=== PATIENT | male | born 1960 | race Caucasian/White ===

== ENCOUNTER 2021-03-31 22:15 | Inpatient (IN) | payer SELFPAY ==
[~2021-03-31] VITALS: Ht 188 cm; Wt 86.4 kg
[2021-03-31 22:37] LABS: HEMATOCRIT 47.1 % (42.0-52.0); HEMOGLOBIN 16.1 g/dl (13.5-18.0); MEAN CELL VOLUME 98 fl (80.0-100.0); MEAN CORPUSCULAR HEMOGLOBIN 34 pg (27.0-31.0); MEAN CORPUSCULAR HGB CONC 34 g/dl (33.0-37.0); MEAN PLATELET VOLUME 11.2 fl (7.4-10.4); PLATELET COUNT 179 K/mm3 (130-400); REDCELL DISTRIBUTION WIDTH-CV 12.4 % (11.5-14.5)
[2021-03-31 22:59] LABS: INR 0.9 (0.8-3.0); PROTHROMBIN TIME 10.3 SECONDS (9.7-12.8)
[2021-03-31 23:08] LABS: BASOPHIL 1 % (0-2); LYMPHOCYTE 2 % (20.0-51.0); METAMYELOCYTE 1 % (0-0); NEUTROPHILS 94 % (42.0-75.2); PLATELET ESTIMATE NORMAL (NORMAL)
[2021-03-31 23:29] LABS: ALANINE AMINOTRANSFERASE 73 U/L (4-49); ALBUMIN 4.2 gm/dL (3.5-5.0); ALKALINE PHOSPHATASE 123 U/L (50-136); ANION GAP 19 mmol/L (7-16); AST,SGOT 171 U/L (15-37); BILIRUBIN,TOTAL 1.7 mg/dL (0.0-1.0); BLOOD UREA NITROGEN 29 mg/dL (9-20); CALCIUM 8.4 mg/dL (8.4-10.2); CHLORIDE 101 mmol/L (98-107); CREATINE KINASE 1549 U/L (55-170); CREATININE, serum 1.43 (0.66-1.25); GLUCOSE 144 mg/dL (74-106); MAGNESIUM 1.8 mg/dL (1.6-2.3); SODIUM 134 mmol/L (137-145); TOTAL PROTEIN 7.3 gm/dL (6.4-8.2)
[2021-03-31 23:31] LABS: ALCOHOL(ethanol),MEDICAL < 10 mg/dL; CARBON DIOXIDE 14 mmol/L (22-30)
[2021-04-01] VITALS (8 sets, daily range): BP systolic 129–167; BP diastolic 88–110; PULSE 102–135; TEMP 97.4–98.5
[2021-04-01 01:08] LABS: ACETONE,SERUM NEGATIVE; LIPASE 126 U/L (23-300)
[2021-04-01] MEDS ORDERED: PRINIVIL20 MG PO (02:44)
[2021-04-01 05:57] LABS: BASO % 0.2 % (0.0-2.0); GRAN # 12.1 (1.4-6.5); GRAN % 86.6 % (42.2-75.2); HEMATOCRIT 39.1 % (42.0-52.0); LYMPH # 0.7 (1.2-3.4); LYMPH % 5.1 % (20.0-51.0); MEAN CELL VOLUME 94 fl (80.0-100.0); MEAN CORPUSCULAR HEMOGLOBIN 33 pg (27.0-31.0); MEAN CORPUSCULAR HGB CONC 35 g/dl (33.0-37.0); MEAN PLATELET VOLUME 9.9 fl (7.4-10.4); MONO # 1.1 (0.1-0.6); MONO % 7.7 % (1.7-9.3); PLATELET COUNT 124 K/mm3 (130-400); RED BLOOD COUNT 4.17 M/mm3 (4.20-5.60); REDCELL DISTRIBUTION WIDTH-CV 12.2 % (11.5-14.5)
[2021-04-01 06:13] LABS: HEMOGLOBIN 13.8 g/dl (13.5-18.0)
[2021-04-01 06:18] LABS: CALCIUM 7.7 mg/dL (8.4-10.2); CREATININE, serum 1.07 (0.66-1.25); POTASSIUM 4.3 mmol/L (3.4-5.0)
[2021-04-01 08:08] LABS: COLLECTION METHOD CLEAN CATCH
[2021-04-01 08:34] LABS: TRICYCLIC ANTIDEPRESS URINE NEGATIVE
[2021-04-01 08:36] LABS: MUCOUS Present /lpf; PH 5 (5-8); SQUAMOUS EPITHELIAL 0-2 /hpf; URINE APPEARANCE Clear; URINE BACTERIA None Seen /hpf; URINE BILIRUBIN Negative (NEGATIVE); URINE BLOOD 3+ (NEGATIVE); URINE COLOR Yellow; URINE GLUCOSE Negative (NEGATIVE); URINE KETONE Negative (NEGATIVE); URINE LEUKOCYTE ESTERASE Negative (NEGATIVE); URINE NITRATE Negative (NEGATIVE); URINE PROTEIN(semi-quant) 2+ (NEGATIVE); URINE UROBILINOGEN Negative (NEGATIVE)
[2021-04-01] MEDS ORDERED: PROVENTIL0.09 MG/A1 IH (09:36)
--- NOTE | 2021-04-01 09:54 | NUR ---
Patient to room 325 from the ED, patient pivot transfered to the bed with 2 assist. Patient has visual tremors and shakes. A&Ox4. VSS, HR tachcardic, telemetry on chest. Denies pain and discomfort. IV CDI. Hebert dependent drainage, marlon, clear. Seizure precautions in place. ETOH protocol. Denies pain and discomfort. No further needs expressed. Call light within reach. Bed alarm on and door left open. Nurse oriented patient to location, call light and ETOH protocols
[2021-04-01 16:18] LABS: COLLECTION METHOD CLEAN CATCH
[2021-04-01 16:36] LABS: PH 7 (5-8); SQUAMOUS EPITHELIAL None Seen /hpf; URINE APPEARANCE Clear; URINE BACTERIA None Seen /hpf; URINE BILIRUBIN Negative (NEGATIVE); URINE BLOOD 2+ (NEGATIVE); URINE COLOR Straw; URINE GLUCOSE Negative (NEGATIVE); URINE KETONE Negative (NEGATIVE); URINE LEUKOCYTE ESTERASE Negative (NEGATIVE); URINE NITRATE Negative (NEGATIVE); URINE PROTEIN(semi-quant) Negative (NEGATIVE); URINE UROBILINOGEN Negative (NEGATIVE); URINE WBC 0-2 /hpf
--- NOTE | 2021-04-01 17:09 | NUR ---
Patient had an uneventful day, has been sitting up in bed watching TV. Patient worked with PT and was unable to bear weight on legs. A&Ox4. VSS, BP elevated and HR tachycardic. IV CDI, fluids infusing. Visable tremors in hands and arms. No anxiety, is plesant. ETOH protocol in place. Seizure precautions in place. Denies pain and discomfort. Hbeert dependent drainage. Call light within reach. Bed alarm on and door left open.
[2021-04-01 17:11] LABS: TRICYCLIC ANTIDEPRESS URINE NEGATIVE
--- NOTE | 2021-04-01 21:06 | NUR ---
PT SLEEPING IN BED UPON ENTERING ROOM. EVEING MEDICATIONS GIVEN. PT HAS NS RUNNING AT 125ML/HR. LUNG SOUNDS AUSCULTATED WITH PLEURAL FRISCTION RUB IN THE UPPER LOBES BILATERALLY DURING INHALATION. BILATERAL BASES ARE CLEAR. PT DENIES ANY PAIN OR NEEDS AT THIS TIME. TREMORS NOTED TO HAND AND ARMS WHEN RAISED. PT RUNNING SINUS TACHYCARDIA. CALL LIGHT WITHIN REACH. WILL CONTINUE TO MONITOR.
[2021-04-02] VITALS (13 sets, daily range): BP systolic 111–151; BP diastolic 63–106; PULSE 83–137; TEMP 98–99.5
--- NOTE | 2021-04-02 06:16 | NUR ---
PT HAD LITTLE REST THROUGHOUT THE NIGHT CLAIMING HE WOKE UP ABOUT EVERY HOUR. PT DENIES ANY NEEDS AT THIS TIME. WILL CONTINUE TO MONITOR.
--- NOTE | 2021-04-02 06:45 | NUR ---
bedside shift report received from JUAN A Pope and JUAN A Benavidez
--- NOTE | 2021-04-02 07:36 | NUR ---
resting in bed, full assessment completed, see interventions for further info, is sitting up and ready for breakfast, c/o some stomach upset that he states has just started and wants to try and eat
[2021-04-02 07:55] LABS: BASO % 0.4 % (0.0-2.0); EOS % 0.4 % (0-4.0); GRAN # 8.1 (1.4-6.5); GRAN % 77.4 % (42.2-75.2); HEMATOCRIT 42.2 % (42.0-52.0); HEMOGLOBIN 14.6 g/dl (13.5-18.0); LYMPH # 1.7 (1.2-3.4); LYMPH % 15.8 % (20.0-51.0); MEAN CELL VOLUME 98 fl (80.0-100.0); MEAN CORPUSCULAR HEMOGLOBIN 34 pg (27.0-31.0); MEAN CORPUSCULAR HGB CONC 35 g/dl (33.0-37.0); MEAN PLATELET VOLUME 10.5 fl (7.4-10.4); MONO # 0.6 (0.1-0.6); MONO % 5.5 % (1.7-9.3); PLATELET COUNT 97 K/mm3 (130-400); RED BLOOD COUNT 4.32 M/mm3 (4.20-5.60); REDCELL DISTRIBUTION WIDTH-CV 11.9 % (11.5-14.5)
[2021-04-02 08:02] LABS: ALBUMIN 3.6 gm/dL (3.5-5.0); BILIRUBIN,TOTAL 1.6 mg/dL (0.0-1.0); CALCIUM 8.2 mg/dL (8.4-10.2); CREATININE, serum 0.88 (0.66-1.25); MAGNESIUM 1.5 mg/dL (1.6-2.3); POTASSIUM 3.5 mmol/L (3.4-5.0); TOTAL PROTEIN 6.8 gm/dL (6.4-8.2)
--- NOTE | 2021-04-02 09:16 | NUR ---
speech therapy in to work with patient, psychology tech calls and states his heart rate is sustained at about 140, Dr Kevin notified
--- NOTE | 2021-04-02 10:30 | NUR ---
remains with elevated pulse and visible tremors, medicated with ativan 1mg IV, resting in bed
--- NOTE | 2021-04-02 10:43 | NUR ---
Initial visit; Patient thanked Cupola Repairer for listening and visiting about congregation, family and getting sober and well. Cupola Repairer offered a blessing and wished the patient well.
--- NOTE | 2021-04-02 12:28 | NUR ---
cardiopulmonary in to complete EKG
--- NOTE | 2021-04-02 13:00 | NUR ---
tremors are less noticeable now and heart rate is slowing, medicated with ativan 0.5mg slow IV
--- NOTE | 2021-04-02 15:30 | NUR ---
fiber glass worker met with patient and spoke with son, Tai, on the phone. Patient is originally from [place] and has moved in with his son in [place]. Son told social insurance analyst that he went on a 2 week vacation and patient wasn't able to care for himself. Son states they understand that they will not be able to leave patient alone for that length of time moving forward. Patient does not have health insurance and will not qualify for disability, nor does he want to pursue that. Worker provided information on alcohol rehab treatment options and a need to be screened by [facility]. Patient stated he has been in an inpatient treatment before and did not feel it was beneficial. Worker advised that patient will need to physically rehab before he can enter any inpatient alcohol treatment center. Worker and patient discussed private pay costs of alcohol treatment. Patient will not be eligible for a physical rehab facility or homehealth as he does not have health insurance. Patient plans to return to son's home upon discharge. Plan to return to son's home.
--- NOTE | 2021-04-02 15:42 | NUR ---
bedside shift report given to JUAN A Parsons
--- NOTE | 2021-04-02 15:48 | NUR ---
Bedside report received from JUAN A Juárez. This RN asked the patient how he was doing, he stated, "Not too well". This RN incquired further and the patient stated, "Well, I tried to get up to the bathroom and it just didn't go well". Patient denied any pain and did not need any assistance at this time.
--- NOTE | 2021-04-02 21:25 | NUR ---
PT RESTING COMFORTABLY IN BED. PT ALERT BUT DISORIENTED. THIS NURSE REMINDED PT WHERE HE WAS AND WHY HE WAS HERE, PT STATED HIS UNDERSTANDING. PT DENIES ANY NEEDS AT THIS TIME. HEART RATE IS TACHYCARDIC AND TREMORS ARE NOTED TO HIS EXTREMITIES. CALL LIGHT WITHIN REACH. WILL CONTINUE TO MONIOTR.
[2021-04-03] VITALS (7 sets, daily range): BP systolic 124–153; BP diastolic 81–111; PULSE 88–114; TEMP 98.1–98.7
--- NOTE | 2021-04-03 02:54 | NUR ---
PT VITALS OBTAINED AT O152, BP WAS 153/111. HYDRALAZINE ADMINISTERED PER ORDERS. AT 0226 I REALIZED I GAVE 20MG INSTEAD OF THE ORDERED 10MG. OBTAINED A SET OF VITALS AND BP READ 128/81. THIS NURSE CALLED CECILIA HAWK AND SHE ADVISED TO CONTINUE TO MONITOR.
[2021-04-03 07:10] LABS: CREATININE, serum 0.71 (0.66-1.25); MAGNESIUM 1.9 mg/dL (1.6-2.3); POTASSIUM 3.1 mmol/L (3.4-5.0)
--- NOTE | 2021-04-03 08:00 | NUR ---
Patient sitting up in bed watching TV. A&O, but confused to location. VSS. HR tachycardic. Denies pain and discomfort. Tremors in hands. Unsteady on feet. IV CDI, fluids infusing. ETOH protocol in place. No further needs expressed from the patient. Call light within reach. Bed alarm on. Door left open
[2021-04-03] MEDS ORDERED: LOVENOX 4040 MG/0.4 SQ (16:22)
[2021-04-03] MEDS ORDERED: NICODERM C14 MG/PATC TD (16:22)
[2021-04-03] MEDS ORDERED: MAG-OX 400400 MG/TAB PO (16:23)
[2021-04-03] MEDS ORDERED: PROTONIX 40MG T40 MG PO (16:23)
[2021-04-03] MEDS ORDERED: MULTIPLE VITAMI1 TA5 PO (16:23)
[2021-04-03] MEDS ORDERED: THIAMINE 1100 MG/TAB PO (16:23)
[2021-04-03] MEDS ORDERED: FOLIC ACID 11 MG/TA1 PO (16:23)
[2021-04-03] MEDS ORDERED: COLACE 100100 MG/CAP PO (16:23)
[2021-04-03] MEDS ORDERED: PROVENTIL0.09 MG/A1 IH (16:24)
[2021-04-03] MEDS ORDERED: K-TAB20 PO (16:27)
--- NOTE | 2021-04-03 17:30 | NUR ---
Patient taken by wheelchair to the ER entrance where son is waiting to take the patient to [facility]. Discharge paperwork and personal belongings with the patient. IV's left in patient and stapleton aware. No further needs expressed. Report called to [facility]
== END 2021-04-03 17:30 | disposition swing bed (61) | DRG 897 ==
LOC: COL.ER 22:15 → SURG 23:34 → COL.ER 04-01 08:46 → SURG 04-01 08:46
PROVIDERS: Emergency Medicine; Family Medicine; Nurse Practitioner Family; ADMIT Internal Medicine
DX: F10.131 Alcohol abuse with withdrawal delirium (principal); E87.2 Acidosis; N17.9 Acute kidney failure, unspecified; M62.82 Rhabdomyolysis; R65.10 Systemic inflammatory response syndrome (SIRS) of non-infectious origin without acute organ dysfunction; I10 Essential (primary) hypertension; K76.0 Fatty (change of) liver, not elsewhere classified; F17.210 Nicotine dependence, cigarettes, uncomplicated; R33.9 Retention of urine, unspecified; R73.9 Hyperglycemia, unspecified; R53.81 Other malaise; R29.6 Repeated falls; K57.30 Diverticulosis of large intestine without perforation or abscess without bleeding
CPT/HCPCS: 99223-AI; 99232-AI; 99233-AI; 99239; C9113; J0360; J0692; J1644; J1650; J1956; J2060; J3411; J3475; J7030; Q9967

== ENCOUNTER 2023-09-02 23:29 | Inpatient (IN) | payer SELFPAY ==
[~2023-09-02] VITALS: Ht 188 cm; Wt 79.6 kg
[~2023-09-02 23:29] MED LIST: ASPIRIN E.C. 8181 MG PO; COLACE 100100 MG/CAP PO; FIRST-MOUTHWASH1 KIT PO; FOLIC ACID 11 MG/TA1 PO; K-TAB20 PO; LIDOCAINE HC20 MG/M2 PO; LOVENOX 4040 MG/0.4 SQ; MAG-OX 400400 MG/TAB PO; MULTIPLE VITAMI1 TA5 PO; NICODERM C14 MG/PATC TD; PRINIVIL20 MG PO; PROTONIX 40MG T40 MG PO; PROVENTIL0.09 MG/A1 IH; RT ADVAIR 228 DISKUS IH; THIAMINE 1100 MG/TAB PO
[2023-09-02] MEDS ORDERED: Ondansetron 4 MG/2 ML VIAL IV ONE (23:45)
[2023-09-02] MEDS ORDERED: LORazepam 2 MG/ML 1 ML VIAL IV ONE (23:45)
[2023-09-02] MEDS ORDERED: Folic Acid 1 MG,Thiamine 200 MG in NS 1,000 ML IV ONE (23:45)
[2023-09-02] MEDS ORDERED: NS 1,000 ML IV ONE (23:45)
[2023-09-02 23:53] LABS: MEAN CELL VOLUME 94 fl (80.0-100.0); MEAN CORPUSCULAR HEMOGLOBIN 32 pg (27-31); MEAN CORPUSCULAR HGB CONC 34 g/dl (33.0-37.0); MEAN PLATELET VOLUME 9.4 fl (7.4-10.4); PLATELET COUNT 170 K/mm3 (130-400); RED BLOOD COUNT 5.68 M/mm3 (4.20-5.60); REDCELL DISTRIBUTION WIDTH-CV 16.7 % (11.5-14.5)
[2023-09-03] VITALS (428 sets, daily range): BP systolic 111–168; BP diastolic 83–120; PULSE 67–120; TEMP 97.1–98.1; O2SAT 79–100
[2023-09-03 00:01] LABS: HEMATOCRIT 53.2 % (42.0-52.0)
[2023-09-03 00:14] LABS: ANISOCYTOSIS 1+; HYPOCHROMIA 1+; LYMPHOCYTE 4 % (20.0-51.0); NEUTROPHILS 93 % (42.0-75.2); PLATELET ESTIMATE NORMAL (NORMAL)
[2023-09-03 00:15] LABS: ALANINE AMINOTRANSFERASE 66 U/L (0-55); ALBUMIN 3.3 gm/dL (3.4-4.8); ALKALINE PHOSPHATASE 194 U/L (40-150); ANION GAP 26 mmol/L (7-16); AST,SGOT 118 U/L (5-34); BILIRUBIN,TOTAL 2.3 mg/dL (0.2-1.2); BLOOD UREA NITROGEN 17 mg/dL (8-26); CALCIUM 8.9 mg/dL (8.4-10.2); CHLORIDE 103 mmol/L (98-107); CREATININE, serum 1.31 mg/dL (0.72-1.25); GLUCOSE 83 mg/dL (70-99); LIPASE 48 U/L (8-78); MAGNESIUM 1.7 mg/dL (1.6-2.6); POTASSIUM 3.8 mmol/L (3.5-4.5); SODIUM 142 mmol/L (136-145); TOTAL PROTEIN 7.1 gm/dL (6.2-8.1)
[2023-09-03 00:16] LABS: STOMATOCYTE 1+
[2023-09-03 00:25] LABS: ALCOHOL(ethanol),MEDICAL < 10 mg/dL (0-10)
[2023-09-03 00:26] LABS: CARBON DIOXIDE 13 mmol/L (23-31)
[2023-09-03] MEDS ORDERED: LORazepam 2 MG/ML 1 ML VIAL IV ONE (00:45)
[2023-09-03 00:47] LABS: INR 1.2 (0.8-3.0); PROTHROMBIN TIME 12.7 SECONDS (9.7-12.8)
[2023-09-03] MEDS ORDERED: Ondansetron 4 MG/2 ML VIAL IV PRN (01:45)
[2023-09-03] MEDS ORDERED: Mag/Al Hydrox/Simeth Susp 30 ML CUP PO PRN (01:45)
[2023-09-03] MEDS ORDERED: Acetaminophen 325 MG TAB PO PRN (01:45)
[2023-09-03] MEDS ORDERED: Pantoprazole 40 MG in NS 10 ML IV SCH (01:49)
[2023-09-03] MEDS ORDERED: cefTRIAXone 1 G in Water For Injection,Sterile 10 ML IV SCH (02:00)
[2023-09-03] MEDS ORDERED: LORazepam 2 MG/ML 1 ML VIAL IV PRN (02:00)
[2023-09-03] MEDS ORDERED: Albuterol/Ipratropium 3 MG-0.5 MG/3 ML Neb Soln IH PRN (02:00)
[2023-09-03] MEDS ORDERED: D5 1/2 NS 1,000 ML IV SCH (02:00)
--- NOTE | 2023-09-03 02:20 | NUR ---
PATIENT ARRIVED TO ICU VIA BED. PATIENT ON ROOM AIR WITH BANANA BAG FINISHING FROM ER. PATIENT HAS MODERATE TREMORS WITH SYSTOLIC 160'S-170'S WHICH WAS UNCHANGED PER ER REPORT. PATIENT IS TACHYCARDIC WHICH IS UNCHANGED FROM ER REPORT. PATIENT SCORED AT THIS TIME FOR WITHDRAWAL TREATMENT DUE TO LAST ATIVAN AT 0100. PATIENT ARRIVED TO UNIT WITH WALLET, KEYS, SHOES, PANTS, UNDERWARE, SHIRT, PHONE, AND GLASSES. PATIENT DID NOT WANT BELONGINGS LOCKED IN SECURITY.
--- NOTE | 2023-09-03 03:00 | NUR ---
HOSPITALIST, PB, NOTIFIED IN REGARDS TO PATIENT'S WITHDRAWAL SCORES AND REQUIRING AN ADDITIONAL 4MG OF ATIVAN. DISCUSSED PATIENT STATUS AND VITAL SIGNS. PER PROVIDER CONTINUE TO TREAT WITHDRAW
--- NOTE | 2023-09-03 04:00 | NUR ---
HOSPITALIST, PB, NOTIFIED REGARDING PATIENT REQUIRING ATIVAN EVERY 30 MINUTES. PATIENT IS THRASHINGM HYPERTENSIVE, TACHYCARDIC, CONFUSED, PULLING AT LINES. PER PROVIDER OK TO START PRECEDEX AND CONTINUE TO TREAT WITHDRAW SYMPTOMS WITH ATIVAN.
[2023-09-03 05:45] LABS: COLLECTION METHOD CLEAN CATCH
[2023-09-03 06:03] LABS: URINE APPEARANCE Clear (CLEAR/HAZY); URINE COLOR Yellow (YELLOW); URINE PROTEIN(semi-quant) 2+ (NEGATIVE)
[2023-09-03 06:04] LABS: MUCOUS Present (NOT PRESENT); URINE BACTERIA Moderate /hpf (NONE SEEN); URINE BLOOD 2+ (NEGATIVE); URINE GLUCOSE Negative (NEGATIVE); URINE KETONE 1+ (NEGATIVE); URINE NITRATE Positive (NEGATIVE); URINE UROBILINOGEN 0.2 E.U/dL (0.2-1.0)
[2023-09-03 06:29] LABS: HEMATOCRIT 46.2 % (42.0-52.0); MEAN CELL VOLUME 92 fl (80.0-100.0); MEAN CORPUSCULAR HEMOGLOBIN 31 pg (27-31); MEAN CORPUSCULAR HGB CONC 34 g/dl (33.0-37.0); MEAN PLATELET VOLUME 9.7 fl (7.4-10.4); PLATELET COUNT 124 K/mm3 (130-400); RED BLOOD COUNT 5.01 M/mm3 (4.20-5.60); REDCELL DISTRIBUTION WIDTH-CV 16.5 % (11.5-14.5)
[2023-09-03 06:30] LABS: HEMOGLOBIN 15.7 g/dl (13.5-18.0)
[2023-09-03 06:48] LABS: ALBUMIN 2.9 gm/dL (3.4-4.8); BILIRUBIN,TOTAL 1.5 mg/dL (0.2-1.2); CALCIUM 7.8 mg/dL (8.4-10.2); CREATININE, serum 1.12 mg/dL (0.72-1.25); MAGNESIUM 1.4 mg/dL (1.6-2.6); POTASSIUM 3.6 mmol/L (3.5-4.5)
[2023-09-03] MEDS ORDERED: Multivitamin TAB PO SCH (08:00)
[2023-09-03] MEDS ORDERED: Nicotine 14 MG DAILY PATCH TD SCH (09:00)
[2023-09-03] MEDS ORDERED: Folic Acid 1 MG TAB PO SCH (09:00)
[2023-09-03] MEDS ORDERED: Lisinopril 20 MG TAB PO SCH (09:00)
[2023-09-03] MEDS ORDERED: Doxycycline Hyclate 100 MG in NS 150 ML IV SCH (19:00)
[2023-09-03] MEDS ORDERED: traZODone 50 MG TAB PO SCH (21:00)
[2023-09-03] MEDS ORDERED: LORazepam 1 MG TAB PO PRN (22:00)
[2023-09-04] VITALS (11 sets, daily range): BP systolic 117–151; BP diastolic 77–105; PULSE 93–118; TEMP 97.9–99.1; O2SAT 97–100
--- NOTE | 2023-09-04 05:04 | NUR ---
PT HAS BEEN COOPERATIVE AND FULLY ORIENTED THIS SHIFT. TOLERATING PO WELL, INCLUDING BEDSIDE SWALLOW ASSESSMENT OF CRACKER AND APPLESAUCE. DIET ADVANCED TO REGULAR. LIBRIUM DOSE DELAYED DUE TO OUT OF STOCK IN [facility] THROUGHOUT HOSPITAL, WILL GIVE SOON AVAILABLE PER BRAKER PASSENGER TRAIN.
[2023-09-04] MEDS ORDERED: chlordiazePOXIDE 25 MG CAP PO ONE (05:15)
--- NOTE | 2023-09-04 07:53 | NUR ---
Patient was reported as answering questions appropriately, was able to order his breakfast this morning, sat up and ate his food without complications. CIWA scores reported to be 8 or below overnight. Will continue to monitor for significant changes throughout the day.
[2023-09-04 09:07] LABS: CALCIUM 7.7 mg/dL (8.4-10.2); CREATININE, serum 0.94 mg/dL (0.72-1.25); POTASSIUM 3.2 mmol/L (3.5-4.5)
--- NOTE | 2023-09-04 09:30 | NUR ---
Initial visit; Patient thanked Process Lead for looking in on him and visiting. Patient said his mother was dying though lives in [place]. Process Lead offered her sympathy and offered to keep Hannah in her prayers. Patient thanked Process Lead.
--- NOTE | 2023-09-04 10:43 | NUR ---
tail worker met with patient to discuss discharge planning. Patient reports he lives alone in [place] in a townhouse. Patient reports he is currently independent with ADLS and does not have any DME. Patient reports his daughter, Gena, is the best point of contact, P# [phone]. Patient reports his PCP is at [facility] but could not remember the name. LAWRENCE will contact [facility]. Patient's preferred pharmacy is [facility] in [place]. Patient reports he had issues affording an $87 medication the other day and ended up not getting it. SW provided information on Good RX, Single Care and a Family Prescription Card. Patient reports he does not have a DPOA-HC in writing but would want his daughter to be his DPOA-HC. Patient does not want to complete a DPOA-HC form during his hospital stay. SW discussed patient's alcohol withdrawal and if he was wanting to seek any treatment for this. Patient reported he was open to it. LAWRENCE provided local resources for AA, [facility] information, [facility] Resource Guide and the [facility] as he does not currently have insurance. Patient would like to return home at time of discharge. LAWRENCE contacted [facility] with financial counseling. [facility] reports they completed a FAA last time patient was here but they were still needing supporting documents. [facility] expressed a member of their financial counseling team will meet with patient. LAWRENCE contacted [facility] and confirmed patient's current PCP is Dr. Osullivan and he is listed as Self-pay in their system. Discharge plan: Home
--- NOTE | 2023-09-04 11:09 | NUR ---
ironworker wire fence erector attempted to contact patient's daughter at P# [phone] and was informed by the person that answered that this was the incorrect number. SW met with patient to receive another number for his daughter. Patient provided P# [phone] but patient was unable to reach his daughter via telephone. SW will attempt to reach daughter later.
[2023-09-04] MEDS ORDERED: MAG-OX 400400 MG/TAB PO (11:26)
[2023-09-04] MEDS ORDERED: PROTONIX 40MG T40 MG PO (11:26)
[2023-09-04] MEDS ORDERED: K-TAB20 PO (11:28)
--- NOTE | 2023-09-04 13:25 | NUR ---
social worker masters received a call from Gena Lee, daughter, P# [phone]. SW confirmed with Gena that patient has a son that is local but he is estranged with him. Son's name is Temo Lee. Gena expressed she did not believe the patient had a DPOA-HC in writing but she expressed he has spoke about it before. SW expressed patient reported he wanted her to be his DPOA-HC but was not wanting to complete any documentation at this time, so without it being completed she and her brother would both be involved in making medical decisions if he were not able to make it on his own. Gena also expressed patient has an ex- whom he is also estranged from.
--- NOTE | 2023-09-04 19:14 | NUR ---
report received from marguerite ramos. pt resting in bed and eating dinner. pt denies pain. bed alarm on. call light in reach. all needs met at this time.
--- NOTE | 2023-09-04 22:06 | NUR ---
shift assessment complete, see documentation. pt not scoring on ciwa currently. pt vss. pt a&o x2. pt denies pain. pt resting in bed. bed alarm on. call light in reach. all needs met at this time.
[2023-09-05] VITALS (8 sets, daily range): BP systolic 114–154; BP diastolic 75–99; PULSE 87–92; TEMP 97.4–99.6
--- NOTE | 2023-09-05 03:39 | NUR ---
pt doing well tonight. pt slept for the first few hours of the shift and is now requesting snacks. pt has been pleasant and cooperative with cares. pt barely scoring on ciwa scale with slight tremors felt. pt remains asymptomatic otherwise. pt continues to deny pain. bed alarm on. call light in reach. all needs met at this time.
[2023-09-05] MEDS ORDERED: Thiamine 100 MG TAB PO SCH (09:00)
[2023-09-05 09:27] LABS: BASO % 0.4 % (0.0-2.0); EOS # 0.1 K/mm3 (0.0-0.7); EOS % 1.1 % (0.0-4.0); GRAN # 4.7 K/mm3 (1.4-6.5); GRAN % 67.2 % (42.2-75.2); HEMATOCRIT 43.9 % (42.0-52.0); LYMPH # 1.6 K/mm3 (1.2-3.4); LYMPH % 22.3 % (20.0-51.0); MEAN CELL VOLUME 92 fl (80.0-100.0); MEAN CORPUSCULAR HEMOGLOBIN 32 pg (27-31); MEAN CORPUSCULAR HGB CONC 34 g/dl (33.0-37.0); MEAN PLATELET VOLUME 10.8 fl (7.4-10.4); MONO # 0.6 K/mm3 (0.1-0.6); MONO % 8.6 % (1.7-9.3); PLATELET COUNT 83 K/mm3 (130-400); RED BLOOD COUNT 4.75 M/mm3 (4.20-5.60); REDCELL DISTRIBUTION WIDTH-CV 15.2 % (11.5-14.5)
--- NOTE | 2023-09-05 09:28 | NUR ---
composite layup worker attended clinical rounding. Pt can discharge today and Dr. Kevin informed SW that pt declined Home Health at this time. Discharge Plan: Home
[2023-09-05] MEDS ORDERED: Potassium Bicarbonate/Citrate 20 MEQ Effervescent TAB PO SCH (09:30)
[2023-09-05] MEDS ORDERED: Magnesium Sulfate 1 GM/100 ML IV Soln IV SCH (09:30)
[2023-09-05 09:32] LABS: ALBUMIN 2.7 gm/dL (3.4-4.8); CALCIUM 7.1 mg/dL (8.4-10.2); CREATININE, serum 0.75 mg/dL (0.72-1.25); TOTAL PROTEIN 5.9 gm/dL (6.2-8.1)
--- NOTE | 2023-09-05 09:53 | NUR ---
Follow-up; Patient thanked Hematologist Oncologist for looking in on him again and stated that he was feeling better. Godfrey thanked Hematologist Oncologist for keeping him in her prayers.
[2023-09-05] MEDS ORDERED: OMNICEF 300MG300 MG PO (10:15)
[2023-09-05] MEDS ORDERED: FOLIC ACID 11 MG/TA1 PO (10:18)
[2023-09-05] MEDS ORDERED: DUO-KAPS1 CAP PO (10:19)
[2023-09-05] MEDS ORDERED: THIAMINE 1100 MG/TAB PO (10:19)
[2023-09-05] MEDS ORDERED: K-PHOS ORIGINA500 MG PO (10:31)
--- NOTE | 2023-09-05 13:44 | NUR ---
LAWRENCE was informed by JUAN A Covarrubias, Tax Technician expressed concerns for pt's mobility. PT Juan Francisco saw pt and said he would not be safe to discharge. Dr. Kevin was informed and spoke with Tax Technician. LAWRENCE was advised to schedule pt an Uber for 2:00pm. LAWRENCE scheduled Uber for 2:00pm and calls will go to RN with updates. Discharge Plan: Home, all services declined
== END 2023-09-05 14:00 | disposition home or self-care (01) | DRG 897 ==
LOC: COL.ER 23:29 → ICU 09-03 01:36 → MEDICAL 09-04 17:05
PROVIDERS: Nurse Practitioner; Physician Assistant; ADMIT Internal Medicine
DX: F10.239 Alcohol dependence with withdrawal, unspecified (principal); E87.20 Acidosis, unspecified; E87.6 Hypokalemia; E83.42 Hypomagnesemia; E83.39 Other disorders of phosphorus metabolism; E86.0 Dehydration; F17.200 Nicotine dependence, unspecified, uncomplicated; I10 Essential (primary) hypertension
CPT/HCPCS: A4314; C9113; J0696; J1650; J2060; J2405; J3411; J3475; J7030

== ENCOUNTER 2023-09-15 20:09 | Inpatient (IN) | payer SELFPAY ==
[~2023-09-15] VITALS: Ht 188 cm; Wt 75.0 kg
[~2023-09-15 20:09] MED LIST changes: +DUO-KAPS1 CAP PO; +K-PHOS ORIGINA500 MG PO; +OMNICEF 300MG300 MG PO
[2023-09-15 20:36] LABS: BASO # 0.1 K/mm3 (0.0-0.2); BASO % 0.7 % (0.0-2.0); EOS # 0.1 K/mm3 (0.0-0.7); EOS % 0.4 % (0.0-4.0); GRAN # 10.1 K/mm3 (1.4-6.5); GRAN % 83.2 % (42.2-75.2); HEMATOCRIT 48.6 % (42.0-52.0); HEMOGLOBIN 16.4 g/dl (13.5-18.0); INR 1.2 (0.8-3.0); LYMPH # 1.1 K/mm3 (1.2-3.4); LYMPH % 9.4 % (20.0-51.0); MEAN CELL VOLUME 95 fl (80.0-100.0); MEAN CORPUSCULAR HEMOGLOBIN 32 pg (27-31); MEAN CORPUSCULAR HGB CONC 34 g/dl (33.0-37.0); MEAN PLATELET VOLUME 9.5 fl (7.4-10.4); MONO # 0.7 K/mm3 (0.1-0.6); MONO % 5.9 % (1.7-9.3); PLATELET COUNT 458 K/mm3 (130-400); PROTHROMBIN TIME 13.2 SECONDS (9.7-12.8); RED BLOOD COUNT 5.14 M/mm3 (4.20-5.60); REDCELL DISTRIBUTION WIDTH-CV 15.8 % (11.5-14.5)
[2023-09-15 21:33] LABS: ALANINE AMINOTRANSFERASE 131 U/L (0-55); ALBUMIN 2.7 gm/dL (3.4-4.8); ALKALINE PHOSPHATASE 218 U/L (40-150); ANION GAP 18 mmol/L (7-16); AST,SGOT 83 U/L (5-34); BILIRUBIN,TOTAL 2.1 mg/dL (0.2-1.2); BLOOD UREA NITROGEN 9 mg/dL (8-26); CALCIUM 7.6 mg/dL (8.4-10.2); CARBON DIOXIDE 22 mmol/L (23-31); CHLORIDE 98 mmol/L (98-107); CREATININE, serum 0.92 mg/dL (0.72-1.25); GLUCOSE 90 mg/dL (70-99); LIPASE 21 U/L (8-78); POTASSIUM 3.1 mmol/L (3.5-4.5); SODIUM 138 mmol/L (136-145); TOTAL PROTEIN 6.4 gm/dL (6.2-8.1)
[2023-09-15 21:40] LABS: MAGNESIUM < 0.9 mg/dL (1.6-2.6)
[2023-09-15 21:42] LABS: TROPONIN-I < 0.010 ng/mL (0.00-0.033)
[2023-09-16] VITALS (18 sets, daily range): BP systolic 105–181; BP diastolic 66–122; PULSE 74–118; TEMP 91.9–99.1
--- NOTE | 2023-09-16 07:10 | NUR ---
0035-pt admitted to room 329 per WC from ED, alert and oriented x4, IV in RH patent/secure. on RA, oriented to room, floor and poc. need to obtain UA when pt able to void, has been having numerous loose stools. BP and CIWA scores elevated. notified Dr Jeffrey per phone for prn orders. tele monitor in place, no skin issues observed. med req, admission intake and assessment completed. pt able to rest after valium and ativan given. CIWA scores 2-15 since arrival. awake this am, ordering breakfast, imodium given x2 for continued diarrhea.
[2023-09-16 08:04] LABS: CALCIUM 8.1 mg/dL (8.4-10.2); CREATININE, serum 0.92 mg/dL (0.72-1.25); MAGNESIUM 1.9 mg/dL (1.6-2.6)
[2023-09-16 08:07] LABS: POTASSIUM 2.7 mmol/L (3.5-4.5)
[2023-09-16 08:17] LABS: COLLECTION METHOD CLEAN CATCH
[2023-09-16 08:41] LABS: PH 6.5 (5.0-8.5); SQUAMOUS EPITHELIAL 0-2 /hpf (0-10); URINE APPEARANCE Clear (CLEAR/HAZY); URINE BLOOD 2+ (NEGATIVE); URINE COLOR Amber (YELLOW); URINE GLUCOSE Negative (NEGATIVE); URINE KETONE 1+ (NEGATIVE); URINE NITRATE Negative (NEGATIVE); URINE PROTEIN(semi-quant) 2+ (NEGATIVE)
--- NOTE | 2023-09-16 08:45 | NUR ---
Hospitalist notified of critical lab value, see orders
[2023-09-16 08:59] LABS: TRICYCLIC ANTIDEPRESS URINE NEGATIVE (NEGATIVE)
[2023-09-16 09:34] LABS: BASO # 0.1 K/mm3 (0.0-0.2); BASO % 0.9 % (0.0-2.0); EOS # 0.1 K/mm3 (0.0-0.7); EOS % 0.7 % (0.0-4.0); GRAN # 8.6 K/mm3 (1.4-6.5); GRAN % 79.5 % (42.2-75.2); HEMATOCRIT 44.5 % (42.0-52.0); HEMOGLOBIN 15.3 g/dl (13.5-18.0); LYMPH # 1.4 K/mm3 (1.2-3.4); LYMPH % 12.7 % (20.0-51.0); MEAN CELL VOLUME 93 fl (80.0-100.0); MEAN CORPUSCULAR HEMOGLOBIN 32 pg (27-31); MEAN CORPUSCULAR HGB CONC 34 g/dl (33.0-37.0); MEAN PLATELET VOLUME 9.4 fl (7.4-10.4); MONO # 0.6 K/mm3 (0.1-0.6); MONO % 5.8 % (1.7-9.3); PLATELET COUNT 405 K/mm3 (130-400); RED BLOOD COUNT 4.79 M/mm3 (4.20-5.60); REDCELL DISTRIBUTION WIDTH-CV 15.7 % (11.5-14.5)
--- NOTE | 2023-09-16 10:03 | NUR ---
SW met with patient to discuss discharge planning. Patient lives in [place] by himself. Patient's PCP is currently at [facility]; however, patient does not have insurance and is worried about the PCP visits cost. SW provided information on [facility] along with [facility] Care Team. Pharmacy is [facility] in [place], patient has issues affording medications without issue. SW provided Singlecare, Family Prescription Card and Good RX cards. Patient does not have a DPOA-HC and wanted to wait until discharge to establish. Patient said best point of contact is Gena Conde# [phone]. Patient reports he has a CPAP but needs the levels adjusted, SW mentioned to discuss this with his PCP. Patient reports to be independent with ADLS and has a car for transportation. Patient reports he did not drive to the hospital but he will be able to pay for an Uber upon discharge. LAWRENCE provided resources for drug and alcohol meetings and [facility]. Patient reports he has been to Monday meetings, SW expressed there are meetings throughout the week that he can go several times if he would like. Patient understood and has no further questions or concerns. Patient would like to return home at time of discharge. Discharge Plan: Home
--- NOTE | 2023-09-16 10:17 | NUR ---
Patient awake, alert and oriented. Tremors noted with movement, denies nausea, headache, shortness of breath or pain. Unsteady on feet. Bed in lowest position, fall precautions in place. Denies needs at this time.
--- NOTE | 2023-09-16 17:57 | NUR ---
Patient calm throughout the afternoon, tremors visible. Denies nausea or headache. Resting in bed, tolerating meal trays. Fall precautions in place, x1 assist to bathroom. Bed in lowest position, bed alarm on, call light within reach.
--- NOTE | 2023-09-16 22:37 | NUR ---
PT'S POTASSIUM LEVEL 3.4, PROTOCOL CALLS FOR EFFER K X4 DOSES, PT DOES NOT WANT TO BE AWAKE ALL NOC DRINKING MEDS, STATES HE IS TRYING TO SLEEP. SPOKE WITH CECILIA Matthews APRN @ BEDSIDE, 40MEQ POTASSIUM TAB ORDERED FOR NOW AND ANOTHER IN 2 HOURS
[2023-09-17] VITALS (9 sets, daily range): BP systolic 124–158; BP diastolic 79–102; PULSE 92–106; TEMP 97.7–99
--- NOTE | 2023-09-17 06:40 | NUR ---
awake resting in bed ordeirng breakfast, bedside shift report received from JUAN A Tyson
--- NOTE | 2023-09-17 06:51 | NUR ---
ciwa scores 2-10 this shift, ativan 1mg po given x2, up to restroom with sba using walker. no N/V or diarrhea this shift. K+ replaced during the noc for 3.4 level, redrawn this am, awaiting results, report given to JUAN A Juárez day shift.
--- NOTE | 2023-09-17 07:50 | NUR ---
awake and sitting up in bed waiting for breakfast, full assessment completed, see interventions for further info, breakfast is here now, denies needs
--- NOTE | 2023-09-17 09:00 | NUR ---
resting in bed on right side talking on phone
--- NOTE | 2023-09-17 10:15 | NUR ---
appears to be sleeping when entered room, awakened for VS
--- NOTE | 2023-09-17 11:00 | NUR ---
awake and watching TV, denies needs
--- NOTE | 2023-09-17 12:00 | NUR ---
sitting up in bed and had lunch, denies pain or needs
[2023-09-17] MEDS ORDERED: MULTI VITAMINS1 TAB PO (12:13)
[2023-09-17] MEDS ORDERED: MAG-OX 400400 MG/TAB PO (12:13)
[2023-09-17] MEDS ORDERED: THIAMINE 1100 MG/TAB PO (12:13)
[2023-09-17] MEDS ORDERED: FOLIC ACID 11 MG/TA1 PO (12:13)
[2023-09-17] MEDS ORDERED: K-DUR20 MEQ PO (12:15)
--- NOTE | 2023-09-17 12:18 | NUR ---
Dr Kevin was in to see patient, will plan discharge later today, spoke with neonatal social worker and she will try to find a walker for him for at home
[2023-09-17] MEDS ORDERED: PROTONIX 40MG T40 MG PO (13:02)
--- NOTE | 2023-09-17 13:22 | NUR ---
SW received notification from patients nurse, that patient will need walker prior to discharge. SW explored option for patient, as he is uninsured at this time. SW provided patient information on [place] loaner program, at this time closed and unable to fill with voucher program with [facility] as they are closed. SW contacted [facility] medical supplies to see if loaner is avaiable for patient, none at this time. Patient was informed that walker could be accessed with [facility] but would be billed to patient. Patient was provided information on financial assistance application. SW faxed over documentation to [facility] to have walker brought to patient.
--- NOTE | 2023-09-17 14:00 | NUR ---
discharge instructions given to patient and verbalizes understanding, informed him if he really wants to quit drinking to call Alcoholics Anonymous and a number was provided for him, he verbalized understanding, will call a taxi for discharge
--- NOTE | 2023-09-17 14:55 | NUR ---
discharged per WC
== END 2023-09-17 14:55 | disposition home or self-care (01) | DRG 897 ==
LOC: COL.ER 20:09 → SURG 23:30
PROVIDERS: Internal Medicine; ADMIT Internal Medicine
DX: F10.139 Alcohol abuse with withdrawal, unspecified (principal); G72.1 Alcoholic myopathy; Z20.822 Contact with and (suspected) exposure to COVID-19; G40.909 Epilepsy, unspecified, not intractable, without status epilepticus; F17.210 Nicotine dependence, cigarettes, uncomplicated; I10 Essential (primary) hypertension; E87.6 Hypokalemia; E83.42 Hypomagnesemia; E88.89 Other specified metabolic disorders; R53.81 Other malaise; R19.7 Diarrhea, unspecified; K20.80 Other esophagitis without bleeding; Z23 Encounter for immunization
CPT/HCPCS: J0360; J1650; J2060; J3475; J7030; Q9967

== ENCOUNTER 2023-09-19 21:52 | Inpatient (IN) | payer SELFPAY ==
[~2023-09-19] VITALS: Ht 188 cm; Wt 84.4 kg
[~2023-09-19 21:52] MED LIST changes: +K-DUR20 MEQ PO; +MULTI VITAMINS1 TAB PO
[2023-09-19 22:34] LABS: BASO # 0.1 K/mm3 (0.0-0.2); BASO % 1.2 % (0.0-2.0); EOS # 0.1 K/mm3 (0.0-0.7); EOS % 1.6 % (0.0-4.0); GRAN # 4.4 K/mm3 (1.4-6.5); GRAN % 62.9 % (42.2-75.2); HEMATOCRIT 48.7 % (42.0-52.0); HEMOGLOBIN 16.6 g/dl (13.5-18.0); LYMPH # 1.6 K/mm3 (1.2-3.4); LYMPH % 23.1 % (20.0-51.0); MEAN CELL VOLUME 96 fl (80.0-100.0); MEAN CORPUSCULAR HEMOGLOBIN 33 pg (27-31); MEAN CORPUSCULAR HGB CONC 34 g/dl (33.0-37.0); MEAN PLATELET VOLUME 8.7 fl (7.4-10.4); MONO # 0.8 K/mm3 (0.1-0.6); MONO % 10.8 % (1.7-9.3); PLATELET COUNT 364 K/mm3 (130-400); RED BLOOD COUNT 5.08 M/mm3 (4.20-5.60); REDCELL DISTRIBUTION WIDTH-CV 16.8 % (11.5-14.5)
[2023-09-19 22:44] LABS: INR 1.1 (0.8-3.0); PROTHROMBIN TIME 11.5 SECONDS (9.7-12.8)
[2023-09-19 22:54] LABS: ALANINE AMINOTRANSFERASE 231 U/L (0-55); ALCOHOL(ethanol),MEDICAL 236 mg/dL (0-10); ALKALINE PHOSPHATASE 237 U/L (40-150); ANION GAP 14 mmol/L (7-16); AST,SGOT 273 U/L (5-34); BILIRUBIN,TOTAL 0.9 mg/dL (0.2-1.2); BLOOD UREA NITROGEN < 5 mg/dL (8-26); CALCIUM 8.3 mg/dL (8.4-10.2); CARBON DIOXIDE 23 mmol/L (23-31); CHLORIDE 108 mmol/L (98-107); GLUCOSE 108 mg/dL (70-99); LIPASE 17 U/L (8-78); POTASSIUM 3.5 mmol/L (3.5-4.5); SODIUM 145 mmol/L (136-145); TOTAL PROTEIN 6.9 gm/dL (6.2-8.1)
[2023-09-20] VITALS (93 sets, daily range): BP systolic 128–165; BP diastolic 88–130; PULSE 116–150; TEMP 98.2–100.1; O2SAT 72–99
[2023-09-20 05:10] LABS: TRICYCLIC ANTIDEPRESS URINE NEGATIVE (NEGATIVE)
--- NOTE | 2023-09-20 07:00 | NUR ---
REPORT RECEIVED FROM JUAN A PONCE. PT RESTING IN BED. HEART RATE AND BP ELEVATED, PRN MEDS ALREADY GIVEN BY ACCESS CLINICIAN. SEIZURE PADS AND BED ALARM IN PLACE. CALL LIGHT IN REACH.
[2023-09-20 08:26] LABS: BASO # 0.1 K/mm3 (0.0-0.2); BASO % 1.4 % (0.0-2.0); EOS # 0.1 K/mm3 (0.0-0.7); EOS % 1.1 % (0.0-4.0); GRAN # 4.4 K/mm3 (1.4-6.5); GRAN % 58.9 % (42.2-75.2); HEMOGLOBIN 15.2 g/dl (13.5-18.0); LYMPH # 1.6 K/mm3 (1.2-3.4); LYMPH % 21.8 % (20.0-51.0); MEAN CELL VOLUME 99 fl (80.0-100.0); MEAN CORPUSCULAR HEMOGLOBIN 32 pg (27-31); MEAN CORPUSCULAR HGB CONC 32 g/dl (33.0-37.0); MEAN PLATELET VOLUME 9.1 fl (7.4-10.4); MONO # 1.2 K/mm3 (0.1-0.6); MONO % 16.1 % (1.7-9.3); PLATELET COUNT 289 K/mm3 (130-400); RED BLOOD COUNT 4.73 M/mm3 (4.20-5.60)
[2023-09-20 08:40] LABS: ANION GAP 14 mmol/L (7-16); BLOOD UREA NITROGEN < 5 mg/dL (8-26); CALCIUM 7.8 mg/dL (8.4-10.2); CARBON DIOXIDE 17 mmol/L (23-31); CHLORIDE 109 mmol/L (98-107); GLUCOSE 114 mg/dL (70-99); MAGNESIUM 1.1 mg/dL (1.6-2.6); SODIUM 140 mmol/L (136-145)
--- NOTE | 2023-09-20 10:31 | NUR ---
fiber optic assembly worker met with pt to discuss discharge planning. Pt lives alone in [place]. He sees Dr. Osullivan and obtains medications from [facility] with no difficulties. He is independent with ADLS and uses no DME. He does not have a DPOA-HC and declined one. He was informed his daughter, Gena [phone] is NOK for decision-making. Pt verbalized understanding. He confirmed with SW he does not have insurance. Pt would like to return home at discharge. LAWRENCE called and spoke with Link Fabric Machine Operator [employer] who has attempted to complete a FAA twice with pt. She needs paystubs or some sort of finances. LAWRENCE provided [facility]'s card to pt and informed him of what he needs to obtain so they can assist with covering this hospital stay. [facility] will see if any Medicaid application was completed or if he qualifies and inform LAWRENCE. Dr. Kevin informed LAWRENCE he will order a Psych consult to assess for capacity. Discharge Plan: TBD
--- NOTE | 2023-09-20 22:19 | NUR ---
PATIENT EXPERIENCING SIGNIFICANT WITHDRAWAL SYMPTOMS - PATIENT HAS VOMITED MULTIPLE TIMES. BEING DOSED ACCORDING TO CIWA. PATIENT IS PLEASANT. BED IN LOW POSITION AND CALL LIGHT WITHIN REACH. PATIENT DOES NOT NEED ANYTHING AT THIS TIME.
[2023-09-21] VITALS (252 sets, daily range): BP systolic 104–153; BP diastolic 78–99; PULSE 98–121; TEMP 98.2–98.9; O2SAT 33–100
[2023-09-21 04:36] LABS: BASO # 0.1 K/mm3 (0.0-0.2); BASO % 1.4 % (0.0-2.0); EOS # 0.1 K/mm3 (0.0-0.7); GRAN # 4.9 K/mm3 (1.4-6.5); GRAN % 60.9 % (42.2-75.2); HEMATOCRIT 43.3 % (42.0-52.0); HEMOGLOBIN 14.7 g/dl (13.5-18.0); LYMPH # 1.4 K/mm3 (1.2-3.4); LYMPH % 17.7 % (20.0-51.0); MEAN CELL VOLUME 95 fl (80.0-100.0); MEAN CORPUSCULAR HEMOGLOBIN 32 pg (27-31); MEAN CORPUSCULAR HGB CONC 34 g/dl (33.0-37.0); MEAN PLATELET VOLUME 9.3 fl (7.4-10.4); MONO # 1.5 K/mm3 (0.1-0.6); MONO % 18.6 % (1.7-9.3); PLATELET COUNT 243 K/mm3 (130-400); RED BLOOD COUNT 4.55 M/mm3 (4.20-5.60); REDCELL DISTRIBUTION WIDTH-CV 16.2 % (11.5-14.5)
[2023-09-21 04:59] LABS: ALBUMIN 2.6 gm/dL (3.4-4.8); BILIRUBIN,TOTAL 1.8 mg/dL (0.2-1.2); CALCIUM 8.4 mg/dL (8.4-10.2); CREATININE, serum 0.85 mg/dL (0.72-1.25); MAGNESIUM 1.3 mg/dL (1.6-2.6); PHOSPHOROUS 3.1 mg/dL (2.3-4.7); POTASSIUM 3.6 mmol/L (3.5-4.5); TOTAL PROTEIN 5.9 gm/dL (6.2-8.1)
--- NOTE | 2023-09-21 18:41 | NUR ---
PT LAYING IN BED UPON ENTERING, FOOD AT BEDSIDE. PT DENIES NEEDS AT THIS TIME. BED IN LOWEST POSITION, CALL LIGHT IN REACH, BED ALARM ON
--- NOTE | 2023-09-21 19:18 | NUR ---
REPORT RECEIVED FROM JUAN A RODRIGUEZ. PT ON THE FLOOR APPROX 1600. PT DENIES PAIN OR SHORTNESS OF BREATH AT THIS TIME. INT TO RIGHT AC PATENT. NICOTINE PATCH TO LEFT SHOULDER. PT HAS SCATTERED SCABS TO BILATERAL LOWER EXTREMITIES, PT UNSURE HOW THIS HAPPENED. PT BELONGINGS IN CLOSET. PT ORIENTED TO ROOM. PT DENIES NEEDS AT THIS TIME. BED IN LOWEST POSITION, CALL LIGHT IN REACH
--- NOTE | 2023-09-21 19:22 | NUR ---
REPORT GIVEN TO JUAN A GUILLEN
--- NOTE | 2023-09-21 20:00 | NUR ---
Assissted patient to bathroom and back to bed. Denies any pain or other needs at this time. Assessment compelte. IV in right forearm infusing with no complications. Call light and personal items in reach. Bed in low position and bed alarm on.
[2023-09-22] VITALS (8 sets, daily range): BP systolic 124–160; BP diastolic 60–124; PULSE 69–109; TEMP 97.5–99.1
--- NOTE | 2023-09-22 06:15 | NUR ---
Patient resting in bed. Denies any pain or needs. No changes over night. Highest CIWA score overnight was 5. Call light and personal items in reach. Bed in low position and bed alarm on.
[2023-09-22 07:32] LABS: BASO # 0.1 K/mm3 (0.0-0.2); BASO % 1.2 % (0.0-2.0); EOS # 0.1 K/mm3 (0.0-0.7); EOS % 2.2 % (0.0-4.0); GRAN # 3.2 K/mm3 (1.4-6.5); GRAN % 55.8 % (42.2-75.2); HEMATOCRIT 39.7 % (42.0-52.0); HEMOGLOBIN 13.8 g/dl (13.5-18.0); LYMPH # 1.3 K/mm3 (1.2-3.4); LYMPH % 23.2 % (20.0-51.0); MEAN CELL VOLUME 94 fl (80.0-100.0); MEAN CORPUSCULAR HEMOGLOBIN 33 pg (27-31); MEAN CORPUSCULAR HGB CONC 35 g/dl (33.0-37.0); MONO % 17.1 % (1.7-9.3); PLATELET COUNT 212 K/mm3 (130-400); RED BLOOD COUNT 4.22 M/mm3 (4.20-5.60); REDCELL DISTRIBUTION WIDTH-CV 15.8 % (11.5-14.5)
--- NOTE | 2023-09-22 07:34 | NUR ---
SHIFT ASSESSMENT COMPLETE. PATIENT SITTING UP IN BED EATING BREAKFAST. MORNING MEDS GIVEN PER ORDERS. IV TO RT FOREARM INFUSING LR 60ML/HR. NO REDNESS, SWELLING, OR DRAINAGE. TELEMENTRY IN PLACE HR 107. PATIENT HAS SOME SCATTERED SCABS THROUGHOUT BODY PATIENT STATES NOT SURE WHERE THEY ALL CAME FROM. PATIENT STAES NO PIAN AT THIS TIME. FALL PRECAUTIONS IN PLACE AND CALL LIGHT IN REACH.
[2023-09-22 07:50] LABS: CALCIUM 8.3 mg/dL (8.4-10.2); CREATININE, serum 0.76 mg/dL (0.72-1.25); MAGNESIUM 1.5 mg/dL (1.6-2.6); POTASSIUM 3.5 mmol/L (3.5-4.5)
--- NOTE | 2023-09-22 09:42 | NUR ---
Pt is resting in bed, alert and oriented, explained benefits of influenza vaccine and accepted dose. Assessment completed, no further needs at this time. Call light within reach.
[2023-09-22] MEDS ORDERED: MAG-OX 400400 MG/TAB PO (12:58)
[2023-09-22] MEDS ORDERED: PROTONIX 40MG T40 MG PO (13:00)
--- NOTE | 2023-09-22 16:00 | NUR ---
Patient was provided with discharge information, all questions answered. IV access and telemetry were discontiued. Pt waiting for UBER scheduled by LAWRENCE.
--- NOTE | 2023-09-22 16:22 | NUR ---
Patient is ready for discharge home today. Photoresist Contact Printer met with patient and provided Drug/Alcohol and Community Resources. SW encouraged patient to contact [facility] to schedule a screening as they can assist patients with no insurance with establishing services. LAWRENCE also informed patient that [facility] has walk in clinic hours. Patient needs assistance getting home so SW scheduled patient an Uber at time of discharge. Discharge Plan: Home
== END 2023-09-22 16:48 | disposition home or self-care (01) | DRG 897 ==
LOC: COL.ER 21:52 → ICU 09-20 02:56 → MEDICAL 09-21 15:51
PROVIDERS: Emergency Medicine; Physician Assistant; ADMIT Internal Medicine
DX: F10.131 Alcohol abuse with withdrawal delirium (principal); F10.129 Alcohol abuse with intoxication, unspecified; I10 Essential (primary) hypertension; F17.210 Nicotine dependence, cigarettes, uncomplicated; G40.909 Epilepsy, unspecified, not intractable, without status epilepticus; Y90.7 Blood alcohol level of 200-239 mg/100 ml; Z79.899 Other long term (current) drug therapy; Z23 Encounter for immunization
CPT/HCPCS: C9113; J0360; J0780; J2060; J2405; J3360; J3411; J3475; J7030; J7120; Q3014

== ENCOUNTER 2023-11-02 12:35 | Inpatient (IN) | payer SELFPAY ==
[~2023-11-02] VITALS: Ht 188 cm; Wt 75.0 kg
[~2023-11-02 12:35] MED LIST changes: +CEFTIN 250250 MG/TAB PO; +VOLTAREN 75 DR75 MG PO
[2023-11-02] MEDS ORDERED: LR 1,000 ML IV ONE (13:00)
[2023-11-02 13:02] LABS: HEMATOCRIT 49.3 % (42.0-52.0); HEMOGLOBIN 17.8 g/dl (13.5-18.0); MEAN CELL VOLUME 93 fl (80.0-100.0); MEAN CORPUSCULAR HEMOGLOBIN 34 pg (27-31); MEAN CORPUSCULAR HGB CONC 36 g/dl (33.0-37.0); MEAN PLATELET VOLUME 9.7 fl (7.4-10.4); PLATELET COUNT 196 K/mm3 (130-400); REDCELL DISTRIBUTION WIDTH-CV 14.8 % (11.5-14.5)
[2023-11-02 13:38] LABS: ALANINE AMINOTRANSFERASE 24 U/L (0-55); ALBUMIN 3.1 gm/dL (3.4-4.8); ALKALINE PHOSPHATASE 318 U/L (40-150); ANION GAP 23 mmol/L (7-16); AST,SGOT 41 U/L (5-34); BILIRUBIN,TOTAL 2.9 mg/dL (0.2-1.2); BLOOD UREA NITROGEN < 5 mg/dL (8-26); CALCIUM 8.3 mg/dL (8.4-10.2); CARBON DIOXIDE 19 mmol/L (23-31); CHLORIDE 97 mmol/L (98-107); CREATININE, serum 0.87 mg/dL (0.72-1.25); GLUCOSE 142 mg/dL (70-99); SODIUM 139 mmol/L (136-145); TOTAL PROTEIN 6.9 gm/dL (6.2-8.1)
[2023-11-02 13:39] LABS: BAND 2 % (0-10); LYMPHOCYTE 2 % (20.0-51.0); NEUTROPHILS 92 % (42.0-75.2); PLATELET ESTIMATE NORMAL (NORMAL)
[2023-11-02 13:44] LABS: POTASSIUM 2.7 mmol/L (3.5-4.5)
[2023-11-02] MEDS ORDERED: LORazepam 2 MG/ML 1 ML VIAL IV ONE (13:45)
[2023-11-02 14:00] LABS: ALCOHOL(ethanol),MEDICAL < 10 mg/dL (0-10)
[2023-11-02] MEDS ORDERED: Ondansetron 4 MG/2 ML VIAL IV ONE ×2 (14:00→15:30)
[2023-11-02 14:15] LABS: TROPONIN-I 0.015 ng/mL (0.00-0.033)
[2023-11-02] MEDS ORDERED: NS 1,000 ML IV ONE ×2 (14:15→19:15)
[2023-11-02] MEDS ORDERED: Iohexol 300 - 100 ML VIAL IV ONE (14:38)
[2023-11-02] MEDS ORDERED: NS 100 ML IV SCH (14:38)
[2023-11-02] MEDS ORDERED: Magnesium Sulfate 4% 50 ML IV ONE ×2 (15:30→17:00)
[2023-11-02 15:44] LABS: CREATINE KINASE 111 U/L (30-200)
[2023-11-02 15:50] LABS: COLLECTION METHOD CLEAN CATCH
[2023-11-02 16:02] LABS: MAGNESIUM < 0.9 mg/dL (1.6-2.6)
[2023-11-02 16:15] LABS: URINE APPEARANCE CLEAR (CLEAR/HAZY); URINE BLOOD TRACE (NEGATIVE); URINE COLOR YELLOW (YELLOW); URINE GLUCOSE NEGATIVE (NEGATIVE); URINE KETONE NEGATIVE (NEGATIVE); URINE NITRATE NEGATIVE (NEGATIVE); URINE PROTEIN(semi-quant) 1+ (NEGATIVE)
[2023-11-02] MEDS ORDERED: Folic Acid 1 MG TAB PO SCH (16:28)
[2023-11-02] MEDS ORDERED: Ondansetron 4 MG/2 ML VIAL IV PRN (16:30)
[2023-11-02] MEDS ORDERED: Mag/Al Hydrox/Simeth Susp 30 ML CUP PO PRN (16:30)
[2023-11-02] MEDS ORDERED: Magnesium Sulfate 8% 50 ML IV ONE (16:30)
[2023-11-02] MEDS ORDERED: LORazepam 2 MG/ML 1 ML VIAL IV PRN (16:30)
[2023-11-02] MEDS ORDERED: Acetaminophen 500 MG TAB PO PRN (16:30)
[2023-11-02] MEDS ORDERED: Potassium Chloride 100 ML IV SCH ×2 (16:45→23:30)
[2023-11-02] MEDS ORDERED: *Potassium Replacement Protocol MC SCH (16:45)
[2023-11-02 16:48] LABS: PROTHROMBIN TIME 11.1 SECONDS (9.7-12.8)
[2023-11-02 16:50] LABS: PARTIAL THROMBOPLASTIN TIME 27.6 SECONDS (26.0-37.0)
[2023-11-02 17:00] VITALS: BP_SYST 158
[2023-11-02] MEDS ORDERED: Multivitamin TAB PO SCH (17:00)
[2023-11-02] MEDS ORDERED: NS & 20 mEq KCl 1,000 ML IV SCH (17:15)
--- NOTE | 2023-11-02 17:45 | NUR ---
PATIENT ARRIVED AWAKE AND ALERT, A 2 ASSIST TO BED. PATINET UNSTEADY. HE DENIES ANY NEEDS OR COMPLAINTS AT THIS TIME. PATINET ORIENTED TO ROOM AND CURRENT PLAN OF CARE. CALL LIGHT WITHIN REACH. FALL PRECAUTIONS PLACED.
[2023-11-02 17:53] VITALS: BP 166/117; PULSE 138; TEMP 97.6
[2023-11-02] MEDS ORDERED: Potassium Bicarbonate/Citrate 20 MEQ Effervescent TAB PO SCH (18:00)
--- NOTE | 2023-11-02 18:15 | NUR ---
MD INFORMED THAT PATIENT WAS UNABLE TO TOELRATE PO POTASSIUM, HE HAD NAUSEA AND EMESIS. COIL MAKER CAMRON DIXON TO CHANGE POTASSIUM ORDER TO IV. PHARMACY CALLED AND ORDER CHANGED.
[2023-11-02 19:08] VITALS: BP 158/129; PULSE 133; TEMP 97.5
--- NOTE | 2023-11-02 19:40 | NUR ---
Assessment complete. A&Ox3. Denies pain/shortness of breath. Slight nausea but better than it was before. Noted to have bilat lower extremity scabbing throughout. VS stable. INT to left hand with NS with 20meq potassium@125ml/hr. Potassium waiting to be hung-mag infusing. Plan of care discussed for this shift to include meds/vitals/detox protocol/calling for questions/concerns. Verbalizes understanding. Call light in reach. Will monitor.
--- NOTE | 2023-11-02 19:40 | NUR ---
Call from air conditioning technician that patients heart rate is in th 150s. Patient has been incontinent of liquid stool. Up out of bed at this time for bedding change and clean up. Will continue to monitor.
--- NOTE | 2023-11-02 20:30 | NUR ---
Patient needs IV access and attempts have been made throughout the day. This nurse ried x1 with no success. Spoke with CISCO Wright and consult placed for central line. Dr Arce is in house and will place after current surgical case. CISCO Wright also states okay to postpone lab draw that is due now until line is placed. Lab notified. COvid/Influenza PCR completed at this time and lab notified to run urine toxicology off urine already sent. Will continue to monitor.
[2023-11-02 21:00] VITALS: BP_SYST 158
[2023-11-02 21:09] LABS: TRICYCLIC ANTIDEPRESS URINE NEGATIVE (NEGATIVE)
[2023-11-02 22:10] VITALS: BP 157/121; PULSE 124; TEMP 98.2
--- NOTE | 2023-11-02 22:17 | NUR ---
Spoke with CISCO Wright-patient continues to be tachy and hypertensive during sleep. BPO 150s/120s-HR 110-130. New orders received and initiated.
--- NOTE | 2023-11-02 23:05 | NUR ---
Patient on way to PACU for central line placement. Report given to MUCK MINER.
[2023-11-03] VITALS (19 sets, daily range): BP systolic 117–165; BP diastolic 91–117; PULSE 18–111; TEMP 96.2–98.9
--- NOTE | 2023-11-03 00:10 | NUR ---
Patient back from central line placedment. Right IJ line-labs drawn per orders-flushes well with good blood return. Fluids restarted. Will reorder potassium per protocol once labs are back. Patient denies pain. BP still slightly elevated. Will continue to monitor.
[2023-11-03 00:28] LABS: BASO # 0.1 K/mm3 (0.0-0.2); BASO % 0.4 % (0.0-2.0); EOS % 0.1 % (0.0-4.0); GRAN # 10.7 K/mm3 (1.4-6.5); GRAN % 77.2 % (42.2-75.2); HEMATOCRIT 41.9 % (42.0-52.0); LYMPH # 1.9 K/mm3 (1.2-3.4); LYMPH % 13.7 % (20.0-51.0); MEAN CELL VOLUME 93 fl (80.0-100.0); MEAN CORPUSCULAR HEMOGLOBIN 33 pg (27-31); MEAN CORPUSCULAR HGB CONC 35 g/dl (33.0-37.0); MEAN PLATELET VOLUME 9.7 fl (7.4-10.4); MONO # 1.1 K/mm3 (0.1-0.6); MONO % 8.2 % (1.7-9.3); PLATELET COUNT 159 K/mm3 (130-400); RED BLOOD COUNT 4.51 M/mm3 (4.20-5.60); REDCELL DISTRIBUTION WIDTH-CV 14.9 % (11.5-14.5)
[2023-11-03 00:32] LABS: HEMOGLOBIN 14.8 g/dl (13.5-18.0)
[2023-11-03 00:42] LABS: ALANINE AMINOTRANSFERASE 20 U/L (0-55); ALBUMIN 2.6 gm/dL (3.4-4.8); ALKALINE PHOSPHATASE 273 U/L (40-150); ANION GAP 11 mmol/L (7-16); AST,SGOT 30 U/L (5-34); BILIRUBIN,TOTAL 2.5 mg/dL (0.2-1.2); BLOOD UREA NITROGEN < 5 mg/dL (8-26); CALCIUM 7.3 mg/dL (8.4-10.2); CARBON DIOXIDE 26 mmol/L (23-31); CHLORIDE 102 mmol/L (98-107); CREATININE, serum 0.64 mg/dL (0.72-1.25); GLUCOSE 95 mg/dL (70-99); POTASSIUM 3.5 mmol/L (3.5-4.5); SODIUM 139 mmol/L (136-145); TOTAL PROTEIN 5.8 gm/dL (6.2-8.1)
[2023-11-03] MEDS ORDERED: Potassium Chloride 100 ML IV SCH (01:00)
[2023-11-03 01:01] LABS: MAGNESIUM 1.4 mg/dL (1.6-2.6)
--- NOTE | 2023-11-03 01:59 | NUR ---
Patient still with elevated blood pressures. Spoke with CISCO Wright and new orders received.
--- NOTE | 2023-11-03 05:48 | NUR ---
Patient has rested off and on this shift. Did get RIJ central line placed last night. Lactic WNL. Received NS bolus as well as 80meq potassium. Lab redraw at 0800. Noted to have elevated diastolics even during sleep-received labatelol with minimal results-provider aware-Tahycardia. Scoring 5-10 on CIWA. Currently resting eyes closed. Jg light in reach. Bed alarm on. Will monitor.
--- NOTE | 2023-11-03 06:40 | NUR ---
PATIENT AWAKE AND ALERT, SITTING UP IN BED. CALL LIGHT WITHIN REACH. RIJ PATENT WITH IV FLUIDS AND MEDCATIONS INFUSING AT ORDERED RATES/DOSE (SEE EMAR). PATIENT DENIES ANY NEEDS OR COMPLAINTS AT THIS TIME. FALL PRECAUTIONS IN PLACE.
[2023-11-03 08:12] LABS: BASO # 0.1 K/mm3 (0.0-0.2); BASO % 0.6 % (0.0-2.0); EOS % 0.3 % (0.0-4.0); GRAN % 75.3 % (42.2-75.2); HEMATOCRIT 41.3 % (42.0-52.0); HEMOGLOBIN 14.5 g/dl (13.5-18.0); LYMPH # 2.1 K/mm3 (1.2-3.4); LYMPH % 17.2 % (20.0-51.0); MEAN CELL VOLUME 94 fl (80.0-100.0); MEAN CORPUSCULAR HEMOGLOBIN 33 pg (27-31); MEAN CORPUSCULAR HGB CONC 35 g/dl (33.0-37.0); MEAN PLATELET VOLUME 9.8 fl (7.4-10.4); MONO # 0.8 K/mm3 (0.1-0.6); MONO % 6.4 % (1.7-9.3); PLATELET COUNT 142 K/mm3 (130-400); RED BLOOD COUNT 4.39 M/mm3 (4.20-5.60); REDCELL DISTRIBUTION WIDTH-CV 15.1 % (11.5-14.5)
[2023-11-03 08:29] LABS: ANION GAP 9 mmol/L (7-16); BLOOD UREA NITROGEN < 5 mg/dL (8-26); CALCIUM 7.5 mg/dL (8.4-10.2); CARBON DIOXIDE 25 mmol/L (23-31); CHLORIDE 102 mmol/L (98-107); CREATININE, serum 0.69 mg/dL (0.72-1.25); GLUCOSE 144 mg/dL (70-99); POTASSIUM 3.8 mmol/L (3.5-4.5); SODIUM 136 mmol/L (136-145)
[2023-11-03] MEDS ORDERED: NS 1,000 ML IV ONE (10:15)
[2023-11-03] MEDS ORDERED: Magnesium Sulfate 4 GM/50 ML IV SOLN IV SCH (10:30)
[2023-11-03] MEDS ORDERED: Potassium Chloride 100 ML IV ONE (14:30)
--- NOTE | 2023-11-03 15:56 | NUR ---
Vaccine Customer Representative met with patient to discuss discharge planning. Patient lives alone in [place] and sees Dr. Osullivan at [facility] for primary care. Patient advised he has not seen her in a while. 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 Patient lives in a three level home and has a front wheeled walker available at home. Patient stated he only uses it sometimes. Patient reported he is normally independent with ADLS. Patient does not have DPOA-HC but was interested in the form, which LAWRENCE provided. Patient has two children, Gena (ph#[phone]) who lives in [place] and Tai who lives locally. Patient stated he may stay with Tai for a short time after discharge depending on his progress. Patient does not have any insurance coverage and [employer] Financial Counselor is assisting with a Financial Assistance Application. SW addressed patient's alcohol use and patient advised he is still drinking on a somewhat daily basis. Patient advised he usually drinks about a third of a fifth of whiskey. Patient has been to inpatient treatment centers before but stated they are too expensive for him to return without insurance. Patient does occasionally attended AA meetings but there is only one here in town he likes to go to. SW provided and reviewed a drug/alcohol resource guide, paying special attention to Earl ANG, which can assist connecting him with services and treatment options. Discharge Plan: Home
--- NOTE | 2023-11-03 16:00 | NUR ---
PATINET ASLEEP, RESTING IN BED. PATIENT AROUSES EASILY TO NAME. CALL LIGHT WITHIN REACH.PATINET DENIES ANY NEEDS OR COMPLAINTS AT THIS TIME.
[2023-11-03] MEDS ORDERED: Melatonin 3 MG TAB PO PRN (22:00)
[2023-11-04] VITALS (10 sets, daily range): BP systolic 121–165; BP diastolic 85–115; PULSE 87–118; TEMP 97.5–98.3
--- NOTE | 2023-11-04 02:36 | NUR ---
NURSING SHIFT ASSESSMENT COMPLETED. THE PATIENT WAS ALERT AND ORIENTED UPON ASSESSMENT. THE PATIENT DID ASK FOR MELATONIN FOR SLEEP THIS EVENING. AN ORDER WAS OBTAINED FOR THE MELATONIN. THE PATIENT ASKED FOR SOMETHING TO EAT BESIDES CLEAR LIQUIDS. PER THE DIET ORDER THE PTS DIET CAN BE ADVANCED TOLERATED. THE PATIENT WAS GIVEN 2 PUDDINGS AND HE TOLERATED THEM WELL. THE PLAN OF CARE AND EVENING MEDICATIONS REVIEWED. NO OTHER NEEDS AT THIS TIME. CALL LIGHT WITHIN REACH. BED IN LOW POSITION, BED ALARM ON. PERSONAL BELONGINS WITHIN REACH.
[2023-11-04 06:15] LABS: BASO # 0.1 K/mm3 (0.0-0.2); BASO % 0.5 % (0.0-2.0); EOS # 0.1 K/mm3 (0.0-0.7); EOS % 1.2 % (0.0-4.0); GRAN # 6.6 K/mm3 (1.4-6.5); HEMATOCRIT 39.5 % (42.0-52.0); HEMOGLOBIN 13.7 g/dl (13.5-18.0); LYMPH # 2.7 K/mm3 (1.2-3.4); LYMPH % 26.6 % (20.0-51.0); MEAN CELL VOLUME 94 fl (80.0-100.0); MEAN CORPUSCULAR HEMOGLOBIN 33 pg (27-31); MEAN CORPUSCULAR HGB CONC 35 g/dl (33.0-37.0); MEAN PLATELET VOLUME 10.6 fl (7.4-10.4); MONO # 0.8 K/mm3 (0.1-0.6); MONO % 7.3 % (1.7-9.3); PLATELET COUNT 112 K/mm3 (130-400); RED BLOOD COUNT 4.19 M/mm3 (4.20-5.60); REDCELL DISTRIBUTION WIDTH-CV 14.9 % (11.5-14.5)
[2023-11-04 06:45] LABS: ANION GAP 11 mmol/L (7-16); BLOOD UREA NITROGEN < 5 mg/dL (8-26); CALCIUM 7.6 mg/dL (8.4-10.2); CARBON DIOXIDE 26 mmol/L (23-31); CHLORIDE 97 mmol/L (98-107); CREATININE, serum 0.64 mg/dL (0.72-1.25); GLUCOSE 80 mg/dL (70-99); PHOSPHOROUS 2.9 mg/dL (2.3-4.7); POTASSIUM 3.2 mmol/L (3.5-4.5); SODIUM 134 mmol/L (136-145)
--- NOTE | 2023-11-04 08:00 | NUR ---
PATIENT IS A&O. HR OF 118, SR ON TELE. ALL OTHER VSS. NO COMPLAINTS. TOLERATING CLEAR LIQUID DIET, SEE ORDERS TO ATT. BREAKFAST TRAY AT BEDSIDE. AM MEDS GIVEN. CIWA SCORE OF 1-2. IV FLUIDS WITH 20KCL INFUSING VIA PUMP INTO RIGHT IJ PER ORDERS. LEFT HAND IV TO INT. SEE K+ REPLACEMENT ORDERS. SPOKE WITH HOSPITALIST ABOUT ALSO REPLACING MAG, SEE ORDERS. PATIENT USING URINAL. HEAD TO TOE ASSESSMENT COMPLETE. NO OTHER NEEDS AT THIS TIME. CALL LIGHT IN REACH. BED ALARM ON.
[2023-11-04] MEDS ORDERED: Potassium Bicarbonate/Citrate 20 MEQ Effervescent TAB PO ONE (08:45)
[2023-11-04] MEDS ORDERED: Magnesium Sulfate 8% 50 ML IV ONE (09:15)
--- NOTE | 2023-11-04 12:12 | NUR ---
Data: Hospital Historiography Professor requested that On-Call Historiography Professor visit this Patient. Patient reviewed portions of his life and his sobriety journey with Historiography Professor. The RN came into the room for a portion of the visit to administer medication. RN told him at that time that he would not be discharged today. Assessment: Patient is disappointed at having to stay longer in the hospital Patient is struggling with his sobriety. Patient recognizes certain situations in his life that make sobriety more difficult for him. Plan of Care: Patient identified behaviors and actions he could control and/or take in order to create an environment for himself that will be more condusive to sobriety. Patient stated his desire to go back to [facility]. Historiography Professor prayed for Patient's healing and for success in his plans once discharged. Chaplains will remain available for Patient as needed/requested while admitted to this hospital.
[2023-11-04] MEDS ORDERED: K-TAB20 PO (13:16)
[2023-11-04] MEDS ORDERED: NATURAL MAGNES200 MG PO (13:17)
--- NOTE | 2023-11-04 14:30 | NUR ---
DC'D RIGHT IJ PER ORDERS. PATIENT POSITIONED WITH HOB FLAT, SUTURES REMOVED, HEAD TURNED & DIRECTED TO EXHAIL, CENTRAL LINE REMOVED AND PATIENT TOLERATED WELL. PRESSURE HELD, NO BLEEDING AND OCCLUSIVE DRESSING APPLIED. PATIENT 30 MIN FLAT TIME STARTED.
--- NOTE | 2023-11-04 15:35 | NUR ---
PATIENT DISCHARGING HOME VIA WC. GAVE DISCHARGE INSTRUCTIONS, E-SCRIPTS SENT AND ANSWERED QUESTIONS/CONCERNS. NO ISSUES WITH REMOVED IJ. LEFT HAND IV DC'D AND SITE COVERED WITH GAUZE & COBAN. PATIENT'S SON DID NOT COME TO GET HIM, PATIENT CALLED AN UBER. HOSPITALIST AWARE. PATIENT DISCHARGED.
== END 2023-11-04 15:35 | disposition home or self-care (01) | DRG 897 ==
LOC: COL.ER 12:35 → MEDICAL 15:25
PROVIDERS: Internal Medicine; Nurse Practitioner Family; Physician Assistant; Surgery; ADMIT Internal Medicine
PROC: 02HV33Z Insertion of Infusion Device into Superior Vena Cava, Percutaneous Approach (ICD-10-PCS; principal; 2023-11-02 23:35)
DX: F10.139 Alcohol abuse with withdrawal, unspecified (principal); R65.10 Systemic inflammatory response syndrome (SIRS) of non-infectious origin without acute organ dysfunction; I10 Essential (primary) hypertension; G40.909 Epilepsy, unspecified, not intractable, without status epilepticus; F17.210 Nicotine dependence, cigarettes, uncomplicated; R74.02 Elevation of levels of lactic acid dehydrogenase [LDH]; K76.0 Fatty (change of) liver, not elsewhere classified; F10.129 Alcohol abuse with intoxication, unspecified; Z20.822 Contact with and (suspected) exposure to COVID-19; Y90.9 Presence of alcohol in blood, level not specified; E86.0 Dehydration; E87.6 Hypokalemia; E83.42 Hypomagnesemia; Z91.81 History of falling; Z23 Encounter for immunization
CPT/HCPCS: J1650; J1920; J2060; J2405; J3360; J3475; J3480; J7030; J7120; Q9967

== ENCOUNTER 2023-11-27 13:00 | Inpatient (IN) | payer SELFPAY ==
[2023-11-27] VITALS (245 sets, daily range): BP systolic 153; BP diastolic 120; PULSE 134; TEMP 98.9; O2SAT 92–100
[~2023-11-27] VITALS: Ht 188 cm; Wt 92.9 kg
[~2023-11-27 13:00] MED LIST changes: +COREG 3.123.125 MG/T PO; +NATURAL MAGNES200 MG PO; +Thiamine 100 MG TAB PO SCH
[2023-11-27] MEDS ORDERED: LR 1,000 ML IV ONE ×2 (13:15→14:15)
[2023-11-27 13:22] LABS: BASO # 0.1 K/mm3 (0.0-0.2); BASO % 0.9 % (0.0-2.0); GRAN # 7.8 K/mm3 (1.4-6.5); GRAN % 77.6 % (42.2-75.2); HEMATOCRIT 44.4 % (42.0-52.0); HEMOGLOBIN 15.4 g/dl (13.5-18.0); LYMPH # 1.1 K/mm3 (1.2-3.4); LYMPH % 10.4 % (20.0-51.0); MEAN CELL VOLUME 100 fl (80.0-100.0); MEAN CORPUSCULAR HEMOGLOBIN 35 pg (27-31); MEAN CORPUSCULAR HGB CONC 35 g/dl (33.0-37.0); MEAN PLATELET VOLUME 8.9 fl (7.4-10.4); MONO # 1.1 K/mm3 (0.1-0.6); MONO % 10.8 % (1.7-9.3); PLATELET COUNT 282 K/mm3 (130-400); RED BLOOD COUNT 4.43 M/mm3 (4.20-5.60); REDCELL DISTRIBUTION WIDTH-CV 15.2 % (11.5-14.5)
[2023-11-27] MEDS ORDERED: LORazepam 2 MG/ML 1 ML VIAL IV ONE ×2 (13:30→14:15)
[2023-11-27 13:43] LABS: ALANINE AMINOTRANSFERASE 39 U/L (0-55); ALBUMIN 2.7 g/dL (3.4-4.8); ALKALINE PHOSPHATASE 240 U/L (40-150); ANION GAP 25 mmol/L (7-16); AST,SGOT 39 U/L (5-34); BILIRUBIN,TOTAL 1.6 mg/dL (0.2-1.2); BLOOD UREA NITROGEN < 5 mg/dL (8-26); C-REACTIVE PROTEIN 0.22 mg/dL (0.00-0.50); CALCIUM 7.9 mg/dL (8.4-10.2); CHLORIDE 102 mEq/L (98-107); CREATININE, serum 0.99 mg/dL (0.72-1.25); GLUCOSE 146 mg/dL (70-99); LIPASE 22 U/L (8-78); POTASSIUM 3.1 mEq/L (3.5-4.5); SODIUM 138 mEq/L (136-145); TOTAL PROTEIN 6.4 g/dl (6.2-8.1)
[2023-11-27] MEDS ORDERED: Iohexol 300 - 100 ML VIAL IV ONE (14:39)
[2023-11-27] MEDS ORDERED: NS 100 ML IV SCH (14:40)
[2023-11-27 15:23] LABS: COLLECTION METHOD CLEAN CATCH
[2023-11-27 15:32] LABS: URINE APPEARANCE CLEAR (CLEAR/HAZY); URINE BLOOD 1+ (NEGATIVE); URINE COLOR YELLOW (YELLOW); URINE GLUCOSE NEGATIVE (NEGATIVE); URINE KETONE NEGATIVE (NEGATIVE); URINE NITRATE POSITIVE (NEGATIVE); URINE PROTEIN(semi-quant) 1+ (NEGATIVE)
[2023-11-27 15:46] LABS: TRICYCLIC ANTIDEPRESS URINE NEGATIVE (NEGATIVE)
[2023-11-27 15:47] LABS: PHOSPHOROUS 4.2 mg/dL (2.3-4.7)
[2023-11-27] MEDS ORDERED: Folic Acid 1 MG TAB PO SCH (15:57)
[2023-11-27] MEDS ORDERED: LORazepam 2 MG/ML 1 ML VIAL IM PRN (16:00)
[2023-11-27] MEDS ORDERED: Mag/Al Hydrox/Simeth Susp 30 ML CUP PO PRN (16:00)
[2023-11-27] MEDS ORDERED: LR 1,000 ML IV SCH (16:00)
[2023-11-27] MEDS ORDERED: cefTRIAXone 1 G in Water For Injection,Sterile 10 ML IV SCH (16:00)
[2023-11-27] MEDS ORDERED: Nicotine 21 MG DAILY PATCH TD SCH (16:14)
[2023-11-27] MEDS ORDERED: Magnesium Sulfate 4% 50 ML IV ONE (16:15)
[2023-11-27] MEDS ORDERED: Potassium Bicarbonate/Citrate 20 MEQ Effervescent TAB PO SCH (16:15)
[2023-11-27] MEDS ORDERED: *Potassium Replacement Protocol MC SCH (16:15)
[2023-11-27] MEDS ORDERED: Lisinopril 20 MG TAB PO SCH (16:18)
[2023-11-27] MEDS ORDERED: hydrALAZINE 20 MG/ML 1 ML VIAL IV PRN (16:30)
[2023-11-27] MEDS ORDERED: LORazepam 2 MG/ML 1 ML VIAL IV PRN (16:45)
[2023-11-27] MEDS ORDERED: Multivitamin TAB PO SCH (17:00)
--- NOTE | 2023-11-27 17:07 | NUR ---
PATIENT ARRIVED TO UNIT AT THIS TIME. ALERT AND ORIENTED X 4 - NO VISIBLE DISTRESS. PATIENT IS PLEASANT AND IS SCORING AROUND AN 8 ON CIWA. PROTOCOL BEING USED APPROPRIATELY. PATIENT STATED THAT WE ARE NOT TO GIVE INFORMATION TO HIS SON. BED IN LOW POSITION AND CALL LIGHT WITHIN REACH. PATIENT DOES NOT HAVE ANY QUESTIONS OR NEEDS AT THIS TIME.
[2023-11-27] MEDS ORDERED: Ondansetron 4 MG/2 ML VIAL IV PRN (17:45)
[2023-11-27] MEDS ORDERED: diazePAM 10 MG TAB PO SCH (17:45)
[2023-11-27 23:52] LABS: INR 1.1 (0.8-3.0); PROTHROMBIN TIME 11.6 SECONDS (9.7-12.8)
[2023-11-27 23:54] LABS: PARTIAL THROMBOPLASTIN TIME 23.4 SECONDS (26.0-37.0)
[2023-11-28] VITALS (672 sets, daily range): BP systolic 100–141; BP diastolic 72–105; PULSE 72–142; TEMP 98–98.5; O2SAT 71–100
[2023-11-28 06:39] LABS: ALBUMIN 2.5 g/dL (3.4-4.8); BILIRUBIN,TOTAL 2.2 mg/dL (0.2-1.2); CREATININE, serum 0.75 mg/dL (0.72-1.25); MAGNESIUM 1.3 mg/dL (1.6-2.6); POTASSIUM 3.4 mEq/L (3.5-4.5); TOTAL PROTEIN 6.1 g/dl (6.2-8.1)
[2023-11-28 06:51] LABS: BASO # 0.1 K/mm3 (0.0-0.2); BASO % 0.8 % (0.0-2.0); EOS % 0.2 % (0.0-4.0); GRAN # 9.1 K/mm3 (1.4-6.5); GRAN % 73.9 % (42.2-75.2); HEMATOCRIT 45.9 % (42.0-52.0); HEMOGLOBIN 15.6 g/dl (13.5-18.0); LYMPH # 1.8 K/mm3 (1.2-3.4); LYMPH % 14.6 % (20.0-51.0); MEAN CELL VOLUME 101 fl (80.0-100.0); MEAN CORPUSCULAR HEMOGLOBIN 34 pg (27-31); MEAN CORPUSCULAR HGB CONC 34 g/dl (33.0-37.0); MEAN PLATELET VOLUME 9.4 fl (7.4-10.4); MONO # 1.3 K/mm3 (0.1-0.6); MONO % 10.2 % (1.7-9.3); PLATELET COUNT 252 K/mm3 (130-400); RED BLOOD COUNT 4.56 M/mm3 (4.20-5.60); REDCELL DISTRIBUTION WIDTH-CV 15.4 % (11.5-14.5)
--- NOTE | 2023-11-28 07:46 | NUR ---
RECEIVED REPORT FROM NIGHTSHIFT RNRUBY. PATIENT RESTING IN BED WATCHING TV. BED IN A LOW POSITION, ALARM ON. CALL LIGHT WITHIN REACH.
[2023-11-28] MEDS ORDERED: Potassium Bicarbonate/Citrate 20 MEQ Effervescent TAB PO SCH (09:30)
[2023-11-28] MEDS ORDERED: *Potassium Replacement Protocol MC SCH (09:30)
--- NOTE | 2023-11-28 09:30 | NUR ---
PATIENT REQUESTED ALL SIDE RAILS BE UP ON HIS BED HE FEELS SAFER & MORE SECURE THIS WAY. EDUCATED PATIENT ON IMPORTANCE OF CALLING BEFORE GETTING UP TO PREVENT FALLS. BED IN A LOW POSITION, ALARM ON. CALL LIGHT WITHIN REACH.
--- NOTE | 2023-11-28 09:57 | NUR ---
HEAD TO TOE ASSESSMENT COMPLETED. PATIENT IS ALERT AND ORIENTED. PATIENT HAS NOTICABLE TREMORS AND IS RESTLESS IN THE BED. PATIENT REPORTS NAUSEA THIS MORNING. PUPILS EQUAL AND REACTIVE. HEART SOUNDS REGULAR S1 AND S2 NOTED, RATE IS TACHY. LUNG SOUNDS CLEAR BILATERALLY IN UPPER AND LOWER LOBES. BOWEL SOUNDS ACTIVE X4. PATIENT IS ABLE TO VOID INDEPENDENTLY USING URINAL AND GETS UP WITH X1 TO BEDSIDE COMMODE. PULSES PRESENT BILATERALLY IN UPPER AND LOWER EXTREMITIES. PATIENT HAS BRUISING GENERALIZED ALL OVER FROM RECENT FALLS & CRAWLING ON FLOOR TO GET AROUND AFTER FALLS. MEDICATIONS ADMINISTERED PER EMAR. BED IN A LOW POSITION, ALARM ON. CALL LIGHT WITHIN REACH.
[2023-11-28] MEDS ORDERED: oxyCODONE 5 MG TAB PO PRN (10:15)
[2023-11-28] MEDS ORDERED: Magnesium Sulfate 4 GM/50 ML IV SOLN IV ONE (10:15)
--- NOTE | 2023-11-28 11:12 | NUR ---
Initial visit; Patient appeared pleasant though scattered in his thoughts. He thanked Category Development Analyst for coming in and leaving her cards that included an explanation of what Chaplains do here at the hospital and Category Development Analyst's name and how to reach her if he would like another visit. Category Development Analyst wished him well.
[2023-11-28] MEDS ORDERED: cefTRIAXone 1 G in Water For Injection,Sterile 10 ML IV SCH (12:00)
--- NOTE | 2023-11-28 13:32 | NUR ---
Social Work Supervisor met with patient to complete discharge planning. Patient is readmitted as inpt less than two weeks after [facility]. Patient sitting up in bed, alert and oriented x 4. Patient verified that he continues to live alone in [place], lists his daughter Gena as his contact. SW informed patient that the number listed for her is not a working number. Patient attempted to find her number in his phone but stated his phone is almost and he can't find it. Patient refused for anyone contacting his son and stated that "there's bad blood between us". Patient stated he still has the information provided at previous admissions for treatment for alcohol abuse and does not require any further information. Patient states he provided financial information to financial counselors at previous hospitalization for financial assistance. LAWRENCE called [employer] in R1 who stated that patient has been provided with Letter of Support several times and has not signed it. She stated she will provide another one today. Patient stated he sees Dr. Osullivan as his PCP. Previous notes indicate that he was "no show" for multiple follow up appointments. Patient stated he will take an Uber home at discharge and has money to pay the Uber himself. Discharge plan: Home
--- NOTE | 2023-11-28 14:04 | NUR ---
SW able to find contact information for patient's ex Gaby. She provided contact information for patient's daughter Gena ([phone]). Left message for Gena to return call, which she did within a few minutes of message. She stated that patient has moved to [place] to be close to his son who could help patient and check on him. Patient is now estranged from son due to his continued heavy drinking and son being "fed up" with patient's behaviors. Gena stated patient has been an alcoholic all her life but she does wich he was close to her so she could check on him.
--- NOTE | 2023-11-28 14:17 | NUR ---
PARISA, DAUGHTER & DPOA's, PHONE NUMBER - [phone].
--- NOTE | 2023-11-28 16:21 | NUR ---
REPORT CALLED TO JUAN A FARIA ON MEDICAL FLOOR. PATIENT TRANSFERRED TO ROOM 312 VIA WHEELCHAIR. ALL BELONGINGS TAKEN WITH PATIENT. PATIENT OFF UNIT AT 1555.
--- NOTE | 2023-11-28 16:32 | NUR ---
PT ARRIVED TO FLOOR FROM ICU. VITALS STABLE. PT HAS 7/10 PAIN IN THE RUQ OF THE ABDOMEN. ASSESSED PT. PT HAS BRUISING ON LEGS FROM FALLS PT HAS SMALL TREMORS IN THE ARMS. NO OTHER COMPLAINTS AT THIS TIME CALL LIGHT WITHIN REACH.
[2023-11-28] MEDS ORDERED: Magnesium Oxide 400 MG TAB PO SCH (17:00)
--- NOTE | 2023-11-28 21:52 | NUR ---
patient lying in bed, alert and oriented x4. pt denies chest pain and reports some shortness of breath with exertion, mild wheezes noted. pt reports pain in upper right abd rated as 7/10, per request renato given, upon reassessment pain rated 4/10. IVs in RW and LW are patent, sites are clean dry and intact. slight tremors noted, pt denies additional CIWA symptoms. BLE bruising/scabs on left harris on extremities, nicoderm patch on left shoulder noted. patient has no further needs, questions or concerns at this time. fall precautions in place, call light within reach. will continue to monitor.
[2023-11-29] VITALS (20 sets, daily range): BP systolic 101–142; BP diastolic 72–100; PULSE 87–108; TEMP 97–98.8
[2023-11-29 06:44] LABS: CALCIUM 8.2 mg/dL (8.4-10.2); CREATININE, serum 0.72 mg/dL (0.72-1.25); MAGNESIUM 1.6 mg/dL (1.6-2.6); POTASSIUM 3.3 mEq/L (3.5-4.5)
[2023-11-29] MEDS ORDERED: Potassium Bicarbonate/Citrate 20 MEQ Effervescent TAB PO SCH (08:00)
[2023-11-29] MEDS ORDERED: *Potassium Replacement Protocol MC SCH (08:00)
[2023-11-29] MEDS ORDERED: Lidocaine 4% Topical Patch TP ONE (08:45)
--- NOTE | 2023-11-29 09:17 | NUR ---
loft worker pile driving attended clinical rounding and was informed pt can discharge today if he is eating and drinking fine. LAWRENCE is familiar with pt from previous re-admits. SW met with pt and informed him of the reccomendation for SNF for rehab, following previous reccomendations. Pt has no insurance and routinely does not complete necessary documents by Entry Processor, [employer] to get FAA completed. Pt reports he recieves income as custodial or pension. He did not answer clearly for SW to verify which. SW discussed family supports and if his children could provide assistance. Pt reports to be estranged from his son and his daughter lives in [place]. SW attempted to explore if his daughter would allow him to stay with her as the reccomendation is for him to get more assistance. Pt said he could talk with his daughter and see if he could "go visit for awhile." SW urged him to do this. Pt reports he cannot self pay for SNF or inpatient KAREN programs. Pt intends to take an Uber to return home and can afford to pay he states. Pt asked for shorts/pants as he urinated in the ones he had on before he came. SW Student Neha provided pt shorts as requested. SW informed Entry Processor, [employer] who reports pt reported to [facility] that he did not have income and lived with a friend who supported him. Umu states she will follow-up on this. Discharge Plan: home
--- NOTE | 2023-11-29 21:14 | NUR ---
Shift assessment complete. Patient is still reporting some nausea but states that previously reported abdominal pain has improved to 3/10. Denies any headache, chest pain, shortness of breath. Vital signs remain stable. Tolerating oral intake well. Call light is within reach, bed is locked and in low position.
--- NOTE | 2023-11-29 23:33 | NUR ---
At 2209, PCT reported patient's blood pressure as 135/100. RN manually rechecked BP with result of 142/88
[2023-11-30] VITALS (10 sets, daily range): BP systolic 117–150; BP diastolic 79–98; PULSE 89–101; TEMP 97.7–98.2
[2023-11-30] MEDS ORDERED: NATURE'S BLEND100 M2 PO (08:51)
[2023-11-30] MEDS ORDERED: TOPROL XL 25MG25 MG PO (08:51)
[2023-11-30] MEDS ORDERED: DUO-KAPS1 CAP PO (08:51)
[2023-11-30 09:40] LABS: BASO # 0.1 K/mm3 (0.0-0.2); BASO % 0.8 % (0.0-2.0); EOS # 0.3 K/mm3 (0.0-0.7); EOS % 2.6 % (0.0-4.0); GRAN # 6.6 K/mm3 (1.4-6.5); GRAN % 66.8 % (42.2-75.2); HEMATOCRIT 39.9 % (42.0-52.0); HEMOGLOBIN 14.4 g/dl (13.5-18.0); LYMPH # 2.3 K/mm3 (1.2-3.4); LYMPH % 23.1 % (20.0-51.0); MEAN CELL VOLUME 98 fl (80.0-100.0); MEAN CORPUSCULAR HEMOGLOBIN 35 pg (27-31); MEAN CORPUSCULAR HGB CONC 36 g/dl (33.0-37.0); MEAN PLATELET VOLUME 10.2 fl (7.4-10.4); MONO # 0.6 K/mm3 (0.1-0.6); MONO % 6.3 % (1.7-9.3); PLATELET COUNT 221 K/mm3 (130-400); RED BLOOD COUNT 4.09 M/mm3 (4.20-5.60); REDCELL DISTRIBUTION WIDTH-CV 14.6 % (11.5-14.5)
[2023-11-30 09:58] LABS: CALCIUM 8.2 mg/dL (8.4-10.2); CREATININE, serum 0.72 mg/dL (0.72-1.25); POTASSIUM 3.5 mEq/L (3.5-4.5)
--- NOTE | 2023-11-30 10:20 | NUR ---
PATIENT RESTING QUIETLY IN BED, WATCHING TELEVISION. DENIES PAIN AT THIS TIME. DENIES NAUSEA, VOMITING, HEADACHE. PT STATES HE PLANS TO GO HOME TODAY AND WILL NEED CLEAN CLOTHING AND TO ARRANGE FOR TRANSPORTATION. INFORMED PATIENT THAT I WILL RELAY THESE NEEDS TO HIS PRIMARY NURSE. PATIENT DENIES ANY FURTHER NEEDS AT THIS TIME. CALL LIGHT IN REACH.
--- NOTE | 2023-11-30 13:35 | NUR ---
patient discharge instructions given. patient verbalized understanding and denied having any questions. patient iv removed.Patient was helped by healthcare social worker with finding an uber ride and patient excorted out of unit by PCT to uber ride.
--- NOTE | 2023-11-30 14:17 | NUR ---
toll testboard worker was notified pt could not get the Whaleback Systemser kat to work on their phone, even with their help. LAWRENCE scheduled a ride for 1:30pm. RN requested a shirt for pt due to his being soiled. LAWRNECE Student Neha retrieved this for pt. Discharge Plan: home
== END 2023-11-30 13:45 | disposition home or self-care (01) | DRG 896 ==
LOC: COL.ER 13:00 → ICU 15:07 → MEDICAL 11-28 15:56
PROVIDERS: Emergency Medicine; Nurse Practitioner Family; Physician Assistant; ADMIT Internal Medicine
DX: F10.139 Alcohol abuse with withdrawal, unspecified (principal); E43 Unspecified severe protein-calorie malnutrition; E87.20 Acidosis, unspecified; E44.0 Moderate protein-calorie malnutrition; I10 Essential (primary) hypertension; F17.210 Nicotine dependence, cigarettes, uncomplicated; Z66 Do not resuscitate; Z20.822 Contact with and (suspected) exposure to COVID-19; Y90.1 Blood alcohol level of 20-39 mg/100 ml; E88.89 Other specified metabolic disorders; E88.09 Other disorders of plasma-protein metabolism, not elsewhere classified; T68.XXXA Hypothermia, initial encounter; E87.6 Hypokalemia; R74.01 Elevation of levels of liver transaminase levels; K57.30 Diverticulosis of large intestine without perforation or abscess without bleeding; E83.42 Hypomagnesemia; N30.90 Cystitis, unspecified without hematuria; G40.909 Epilepsy, unspecified, not intractable, without status epilepticus; K76.0 Fatty (change of) liver, not elsewhere classified; Z79.899 Other long term (current) drug therapy; Z91.81 History of falling; Z23 Encounter for immunization; Z68.20 Body mass index [BMI] 20.0-20.9, adult
CPT/HCPCS: J0360; J0696; J1650; J2060; J2405; J2543; J3475; J7120; Q9967

== ENCOUNTER 2023-12-07 21:47 | Observation (INO) | payer SELFPAY ==
[~2023-12-07] VITALS: Ht 188 cm; Wt 86.3 kg
[~2023-12-07 21:47] MED LIST changes: +NATURE'S BLEND100 M2 PO; +TOPROL XL 25MG25 MG PO; -Thiamine 100 MG TAB PO SCH
[2023-12-07] MEDS ORDERED: NS 1,000 ML IV ONE (22:15)
[2023-12-07] MEDS ORDERED: LORazepam 2 MG/ML 1 ML VIAL IV ONE ×2 (22:30→23:30)
[2023-12-07 22:48] LABS: ALANINE AMINOTRANSFERASE 25 U/L (0-55); ALBUMIN 2.7 g/dL (3.4-4.8); ALKALINE PHOSPHATASE 211 U/L (40-150); ANION GAP 21 mmol/L (7-16); AST,SGOT 33 U/L (5-34); BILIRUBIN,TOTAL 1.5 mg/dL (0.2-1.2); BLOOD UREA NITROGEN 8 mg/dL (8-26); CALCIUM 8.4 mg/dL (8.4-10.2); CHLORIDE 103 mEq/L (98-107); CREATININE, serum 1.11 mg/dL (0.72-1.25); GLUCOSE 173 mg/dL (70-99); MAGNESIUM 1.2 mg/dL (1.6-2.6); POTASSIUM 3.5 mEq/L (3.5-4.5); SODIUM 137 mEq/L (136-145); TOTAL PROTEIN 6.1 g/dl (6.2-8.1)
[2023-12-07 22:52] LABS: ALCOHOL(ethanol),MEDICAL < 10 mg/dL (0-10)
[2023-12-07] MEDS ORDERED: Acetaminophen 325 MG TAB PO PRN (23:15)
[2023-12-07] MEDS ORDERED: LORazepam 2 MG/ML 1 ML VIAL IM PRN (23:15)
[2023-12-07] MEDS ORDERED: Ondansetron 4 MG/2 ML VIAL IV PRN (23:15)
[2023-12-07] MEDS ORDERED: Albuterol/Ipratropium 3 MG-0.5 MG/3 ML Neb Soln IH PRN (23:15)
[2023-12-07] MEDS ORDERED: Mag/Al Hydrox/Simeth Susp 30 ML CUP PO PRN ×2 (23:15→23:45)
[2023-12-07] MEDS ORDERED: Magnesium Sulfate 8% 50 ML IV ONE (23:15)
[2023-12-07] MEDS ORDERED: NS & 20 mEq KCl 1,000 ML IV SCH (23:15)
[2023-12-07] MEDS ORDERED: Thiamine 100 MG TAB PO SCH (23:56)
[2023-12-08] VITALS (17 sets, daily range): BP systolic 103–160; BP diastolic 75–140; PULSE 84–138; TEMP 97.6–99.3
[2023-12-08 00:37] LABS: BASO # 0.1 K/mm3 (0.0-0.2); BASO % 0.4 % (0.0-2.0); GRAN % 86.6 % (42.2-75.2); HEMATOCRIT 43.3 % (42.0-52.0); HEMOGLOBIN 15.7 g/dl (13.5-18.0); LYMPH # 0.6 K/mm3 (1.2-3.4); LYMPH % 4.9 % (20.0-51.0); MEAN CELL VOLUME 96 fl (80.0-100.0); MEAN CORPUSCULAR HEMOGLOBIN 35 pg (27-31); MEAN CORPUSCULAR HGB CONC 36 g/dl (33.0-37.0); MONO # 0.9 K/mm3 (0.1-0.6); MONO % 7.8 % (1.7-9.3); PLATELET COUNT 280 K/mm3 (130-400); RED BLOOD COUNT 4.52 M/mm3 (4.20-5.60); REDCELL DISTRIBUTION WIDTH-CV 14.7 % (11.5-14.5)
[2023-12-08 01:55] LABS: COLLECTION METHOD CLEAN CATCH
[2023-12-08 02:08] LABS: URINE APPEARANCE CLEAR (CLEAR/HAZY); URINE BLOOD NEGATIVE (NEGATIVE); URINE COLOR YELLOW (YELLOW); URINE GLUCOSE NEGATIVE (NEGATIVE); URINE KETONE NEGATIVE (NEGATIVE); URINE NITRATE NEGATIVE (NEGATIVE); URINE PROTEIN(semi-quant) 1+ (NEGATIVE)
[2023-12-08 02:15] LABS: TRICYCLIC ANTIDEPRESS URINE NEGATIVE (NEGATIVE)
--- NOTE | 2023-12-08 03:20 | NUR ---
PT ARRIVED TO THE UNIT AROUND 0045, ALERT AND ORIENTED. TREMORS VERY VISIBLY SEEN. MILD DIAPHORESIS SCORED A 13 FOR THE FIRST CIWA ASSESSMENT, MEDICATED PER EMAR. ASSESMENT DONE. PT STATES HED LIKE TO GO WILLINGLY TO A REHAB FACILITY FOR ALCOHOL WITHDRAWL.VERY PLEASANT MAN, HE STATES HE IS ESTRANGED FROM HIS FAMILY IN [place] BUT THAT HIS DAUGHTER IS HIS SUPPORT CONTACT. PT DOES HAVE HX OF HTN AND WAS AT 160/130. CALLED PROVIDER, HE SAID IF HE GETS OVER 180 SYSTOLIC WE WOULD RE ASSESS THEN. CALL LIGHT WITHIN REACH, BED ALARM SET. PT DENIES PAIN AT THIS TIME AND IS COMFORTABLE RESTING IN BED.
[2023-12-08] MEDS ORDERED: LORazepam 2 MG/ML 1 ML VIAL IV PRN (05:45)
[2023-12-08 06:27] LABS: HEMATOCRIT 45.2 % (42.0-52.0); HEMOGLOBIN 16.4 g/dl (13.5-18.0); MEAN CELL VOLUME 97 fl (80.0-100.0); MEAN CORPUSCULAR HEMOGLOBIN 35 pg (27-31); MEAN CORPUSCULAR HGB CONC 36 g/dl (33.0-37.0); MEAN PLATELET VOLUME 9.3 fl (7.4-10.4); PLATELET COUNT 291 K/mm3 (130-400); RED BLOOD COUNT 4.65 M/mm3 (4.20-5.60); REDCELL DISTRIBUTION WIDTH-CV 14.8 % (11.5-14.5)
[2023-12-08 06:37] LABS: CALCIUM 8.6 mg/dL (8.4-10.2); CREATININE, serum 0.76 mg/dL (0.72-1.25); MAGNESIUM 2.6 mg/dL (1.6-2.6); PHOSPHOROUS 3.1 mg/dL (2.3-4.7); POTASSIUM 3.3 mEq/L (3.5-4.5)
[2023-12-08] MEDS ORDERED: Sucralfate 1 G TAB PO SCH (07:00)
[2023-12-08] MEDS ORDERED: Multivitamin TAB PO SCH (08:00)
--- NOTE | 2023-12-08 08:35 | NUR ---
Pt resting in bed, alert and oriented. CIWA score of 9, Toshia RN notified. Pt denies any needs at this time. Bed at lowest position. Call light within reach.
--- NOTE | 2023-12-08 08:48 | NUR ---
PATIENT RESTING IN BED UPON ENTERING ROOM. SHIFT ASSESSMENT COMPLETED. PATIENT A&O X4, ANSWERING QUESTIONS APPROPRIATELY AND FOLLOWING COMMANDS. IVF INFUSING. PATIENT REPORTS MILD ABDOMINAL PAIN TO RIGHT SIDE. PATIENT PRESENTS WITH SOME ANXIETY AND TREMORS. SCORING A 9 ON CIWA PROTOCOL. FALL PRECAUTIONS IN PLACE, BED ALARM ON, CALL LIGHT WITHIN REACH. WILL CONTINUE TO MONITOR.
[2023-12-08] MEDS ORDERED: Folic Acid 1 MG TAB PO SCH (09:00)
[2023-12-08] MEDS ORDERED: Lisinopril 20 MG TAB PO SCH (09:00)
--- NOTE | 2023-12-08 10:45 | NUR ---
Initial visit; Patient thanked Control Systems Developer for coming in and being straight forward with him concerning his alcoholism. Control Systems Developer advised that he has no choice if he was going to take care of his body, to stop consuming alcohol. He is the only one who can make the decision to stop drinking and get sober. Control Systems Developer gave suggestions about becoming involved in helping others and forming a network of friends, preferably Jainism who provide a good example of how to live for God and others. He appeared seriously interested in helping himself.
[2023-12-08] MEDS ORDERED: *Potassium Replacement Protocol MC SCH ×2 (12:15→19:45)
[2023-12-08] MEDS ORDERED: Potassium Bicarbonate/Citrate 20 MEQ Effervescent TAB PO SCH ×2 (12:15→19:45)
--- NOTE | 2023-12-08 15:32 | NUR ---
tank worker met with pt to discuss discharge planning. Pt is a recent re-admission and SW is familiar with pt. Pt reports he lives alone in [place]. He reports to see Dr. Osullivan, but has no insurance and hasn't seen her recently. SW provided information on the [facility]. Pt reports he is familiar and thinks he has been there before. Pt states his contact is his daughter, Gena [phone]. Pt does not have a DPOA-HC and declines one. He reports to be independent with ADLS and uses no DME. Pt confirmed he has no insurance, but states he provided the bank statements to associate financial planner in the hospital. SW discussed a consult regarding pt wanting rehab. Pt reports he does want alcohol rehab information. SW provided the [employer] information for him to call and obtain an assessment, if he would like to receives assistance for his alcohol use disorder. Pt verbalized understanding and shortly later was on the phone with [employer]. LAWRENCE spoke with associate financial planner, [employer] who reports pt has still been non-compliant with her. Discharge Plan: home
--- NOTE | 2023-12-08 15:41 | NUR ---
fitness worker received a call from Rev who states pt will have an assessment completed December 14, 2023 at 10:30am. Pt was on the line and requested an email with the information.
--- NOTE | 2023-12-08 19:00 | NUR ---
REPORT RECEIVED FROM DONNA VELAZCO. PATIENT RESTING IN BED WITH EYES CLOSED. WILL MONITOR.
--- NOTE | 2023-12-08 22:33 | NUR ---
THIS NURSE WENT IN TO ADMINISTER SCHEDULED MEDICATIONS AND ASSESS CIWA SCORE. PATIENT IS NOW NAUSEATED. THIS NURSE ASKED PATIENT IF HE WANTED A MEDICAITON FOR NAUSEA. PATIENT ACCEPTED. ADMINISTERED ZOFRAN PRN ADMINISTERED PER OCT. CIWA SCORE 1. WILL MONITOR
[2023-12-09] VITALS (19 sets, daily range): BP systolic 103–169; BP diastolic 69–102; PULSE 70–91; TEMP 97.5–98.5
--- NOTE | 2023-12-09 00:13 | NUR ---
KATIE PECK NOTIFIED OF PATIENT'S BP 147/106. PULSE IS 84. GAVE THIS NURSE VERBAL ORDER TO ADMINISTER IV LABETALOL.
--- NOTE | 2023-12-09 00:48 | NUR ---
THIS NURSE RECHECKED PATIENT'S BP. BP HAS IMPROVED AND IS NOW 125/91. TREMORS ALSO NOTED WHEN APPLYING BP CUFF. WILL MONITOR
--- NOTE | 2023-12-09 05:51 | NUR ---
PATIENT SITTING UP IN BED WATCHING TV. ALERT AND ORIENTED. PATIENT STATES HE SLEPT WELL. DENIES PAIN, DISCOMFORT, AND NAUSEA. MILD TREMORS NOTED.
[2023-12-09 07:03] LABS: BASO # 0.1 K/mm3 (0.0-0.2); BASO % 0.6 % (0.0-2.0); EOS # 0.1 K/mm3 (0.0-0.7); GRAN # 6.2 K/mm3 (1.4-6.5); HEMATOCRIT 41.3 % (42.0-52.0); LYMPH # 1.8 K/mm3 (1.2-3.4); MEAN CORPUSCULAR HGB CONC 34 g/dl (33.0-37.0); MEAN PLATELET VOLUME 9.8 fl (7.4-10.4); MONO # 0.7 K/mm3 (0.1-0.6); MONO % 7.9 % (1.7-9.3); PLATELET COUNT 219 K/mm3 (130-400); RED BLOOD COUNT 4.04 M/mm3 (4.20-5.60); REDCELL DISTRIBUTION WIDTH-CV 14.6 % (11.5-14.5)
[2023-12-09 07:08] LABS: MEAN CELL VOLUME 102 fl (80.0-100.0); MEAN CORPUSCULAR HEMOGLOBIN 35 pg (27-31)
[2023-12-09 07:20] LABS: CALCIUM 8.2 mg/dL (8.4-10.2); CREATININE, serum 0.81 mg/dL (0.72-1.25); MAGNESIUM 1.4 mg/dL (1.6-2.6); POTASSIUM 4.1 mEq/L (3.5-4.5)
--- NOTE | 2023-12-09 08:29 | NUR ---
PATIENT RESTING IN BED UPON ENTERING ROOM. MORNING MEDICATIONS ADMINISTERED. SHIFT ASSESSMENT COMPLETED. PATIENT CURRENTLY SCORING A 4 ON CIWA SCALE. DENIES ANY PAIN OR ANXIETY. FALL PRECAUTIONS IN PLACE, BED ALARM ON, CALL LIGHT WITHIN REACH. IVF INFUSING. UPDATED ON POC. WILL CONTINUE TO MONITOR.
[2023-12-09] MEDS ORDERED: Magnesium Sulfate 4% 50 ML IV ONE (10:15)
--- NOTE | 2023-12-09 18:17 | NUR ---
THIS RN WAS NOTIFIED BY IVONNE MOORE THAT WHEN SHE DUMPED THE PATIENT'S URINAL SHE NOTICED TWO BLUE PILL IN IT. THIS RN WILL PASS ALONG TO ONCOMING NIGHT NURSE.
--- NOTE | 2023-12-09 19:22 | NUR ---
Bedside report received from JUAN A Pope. Pt is awake in bed alert and oriented. Pt has no request at this time. Call light within reach and fall precautions in place.
--- NOTE | 2023-12-09 23:11 | NUR ---
This nurse went to remove pt scheduled Librium when pyxis stated to remove 4 tabs. This nurse removed 4 tabs of 10 mg of Librium. The EMAR stated that the order was for 3 tabs of 10 mg a total of 30 mg for the taper. This nurse returned the 4th tab of 10 mg Librium to pyxis with JUAN A Spangler as a witness. 3 tabs of 10 mg Librium adminsitered to pt as ordered in EMAR.
[2023-12-10] VITALS (14 sets, daily range): BP systolic 108–144; BP diastolic 77–98; PULSE 77–99; TEMP 97.4–98.4
--- NOTE | 2023-12-10 04:19 | NUR ---
Shift assessment completed. Pt is A&O x4. CIWA protocol in place with last score of 4 with tremors noted. Pt reports no other symptoms of withdrawal. Pt reports no pain at this time. VSS. Telemetry in place. Seizure precautions in place. INT to Lt AC patent with no swelling, redness, or drainage. Pt has no request at this time. Call light within reach and fall precautions in place.
[2023-12-10 06:39] LABS: BASO # 0.1 K/mm3 (0.0-0.2); BASO % 0.6 % (0.0-2.0); EOS # 0.1 K/mm3 (0.0-0.7); EOS % 1.3 % (0.0-4.0); GRAN # 6.2 K/mm3 (1.4-6.5); GRAN % 71.6 % (42.2-75.2); HEMATOCRIT 38.9 % (42.0-52.0); HEMOGLOBIN 13.3 g/dl (13.5-18.0); LYMPH # 1.6 K/mm3 (1.2-3.4); LYMPH % 18.9 % (20.0-51.0); MEAN CELL VOLUME 101 fl (80.0-100.0); MEAN CORPUSCULAR HEMOGLOBIN 35 pg (27-31); MEAN CORPUSCULAR HGB CONC 34 g/dl (33.0-37.0); MEAN PLATELET VOLUME 10.4 fl (7.4-10.4); MONO # 0.6 K/mm3 (0.1-0.6); MONO % 7.3 % (1.7-9.3); PLATELET COUNT 206 K/mm3 (130-400); RED BLOOD COUNT 3.86 M/mm3 (4.20-5.60); REDCELL DISTRIBUTION WIDTH-CV 14.3 % (11.5-14.5)
[2023-12-10 06:48] LABS: CALCIUM 8.4 mg/dL (8.4-10.2); CREATININE, serum 0.74 mg/dL (0.72-1.25); MAGNESIUM 1.3 mg/dL (1.6-2.6)
--- NOTE | 2023-12-10 06:51 | NUR ---
Bedside report given to JUAN A Pope. Pt awake in bed alert and oriented with no complaints. Call light within reach and fall precautions in place.
--- NOTE | 2023-12-10 07:30 | NUR ---
CIWA AND VITALS SCHEDULED FOR Q4 HOURS PER PROTOCOL SINCE PATIENT HAS NOT SCORED AN 8 OR GREATER IN OVER [address] RN UPD[address]. SAMUEL OF THIS AND SHE IS OK WITH THIS.
[2023-12-10] MEDS ORDERED: Magnesium Sulfate 8% 50 ML IV ONE (08:30)
--- NOTE | 2023-12-10 09:47 | NUR ---
PATIENT SITTING UP IN BED. MORNING MEDICATIONS ADMINISTERED. SHIFT ASSESSMENT COMPLETED. PATIENT DENIES ANY PAIN OR ANXIETY. PATIENT STILL HAS VISIBLE TREMORS. SCORING A 4 ON CIWA. UPDATED ON POC. FALL PRECAUTIONS IN PLACE, BED ALARM ON, CALL LIGHT WITHIN REACH. WILL CONTINUE TO MONITOR.
--- NOTE | 2023-12-10 09:54 | NUR ---
IV WAS LEAKING WHEN ATTEMPTING TO FLUSH. JUAN A SHANNON, STARTED A NEW SITE TO Chacho KIM. FLUSHES WELL.
[2023-12-10] MEDS ORDERED: Albuterol/Ipratropium 3 MG-0.5 MG/3 ML Neb Soln IH SCH (11:00)
[2023-12-11] VITALS (11 sets, daily range): BP systolic 92–149; BP diastolic 57–105; PULSE 84–107; TEMP 98.1–99.2
[2023-12-11 07:50] LABS: BASO % 0.4 % (0.0-2.0); EOS # 0.1 K/mm3 (0.0-0.7); EOS % 0.6 % (0.0-4.0); GRAN # 8.1 K/mm3 (1.4-6.5); GRAN % 79.2 % (42.2-75.2); HEMATOCRIT 39.4 % (42.0-52.0); HEMOGLOBIN 13.7 g/dl (13.5-18.0); LYMPH # 1.4 K/mm3 (1.2-3.4); LYMPH % 13.3 % (20.0-51.0); MEAN CELL VOLUME 101 fl (80.0-100.0); MEAN CORPUSCULAR HEMOGLOBIN 35 pg (27-31); MEAN CORPUSCULAR HGB CONC 35 g/dl (33.0-37.0); MEAN PLATELET VOLUME 9.9 fl (7.4-10.4); MONO # 0.6 K/mm3 (0.1-0.6); MONO % 6.1 % (1.7-9.3); PLATELET COUNT 185 K/mm3 (130-400); RED BLOOD COUNT 3.92 M/mm3 (4.20-5.60); REDCELL DISTRIBUTION WIDTH-CV 14.4 % (11.5-14.5)
--- NOTE | 2023-12-11 08:00 | NUR ---
Patient resting in bed, alert and orineted x4, denies any pain or discofort. Assessment complted, no further needs at this time. Call light within reach.
[2023-12-11 08:13] LABS: ALBUMIN 2.5 g/dL (3.4-4.8); CALCIUM 8.5 mg/dL (8.4-10.2); CREATININE, serum 0.77 mg/dL (0.72-1.25); MAGNESIUM 1.3 mg/dL (1.6-2.6); TOTAL PROTEIN 5.9 g/dl (6.2-8.1)
[2023-12-11] MEDS ORDERED: MAG-OX 400400 MG/TAB PO (09:43)
[2023-12-11] MEDS ORDERED: Magnesium Sulfate 4 GM/50 ML IV SOLN IV ONE (09:45)
[2023-12-11] MEDS ORDERED: NEURONTIN300 MG/CAP PO (09:45)
--- NOTE | 2023-12-11 15:06 | NUR ---
Sales Negotiator attended clinical rounds with the team then met with patient. Plan is for discharge home this evening after last dose of medication at 1700. SW collaborated with Wire Frame Dipper who can accept patient with an UBER home.
== END 2023-12-11 17:50 | disposition home or self-care (01) ==
LOC: COL.ER 21:47 → MEDICAL 23:01 → COL.ER 23:01 → MEDICAL 23:01
PROVIDERS: Nurse Practitioner; Physician Assistant; ADMIT Hospitalist
DX: F10.939 Alcohol use, unspecified with withdrawal, unspecified (principal); Y90.0 Blood alcohol level of less than 20 mg/100 ml; E83.42 Hypomagnesemia; E87.20 Acidosis, unspecified; R53.1 Weakness; E87.6 Hypokalemia; I10 Essential (primary) hypertension; F17.210 Nicotine dependence, cigarettes, uncomplicated; Z79.899 Other long term (current) drug therapy
CPT/HCPCS: G0378; J1920; J2060; J3475; J3480; J7030

== ENCOUNTER 2023-12-18 11:20 | Inpatient (IN) | payer SELFPAY ==
[2023-12-18] VITALS (24 sets, daily range): BP systolic 152–170; BP diastolic 34–138; PULSE 120–138; TEMP 97.7–98.8; O2SAT 93–96
[~2023-12-18] VITALS: Ht 188 cm; Wt 72.4 kg
[~2023-12-18 11:20] MED LIST changes: +NEURONTIN300 MG/CAP PO
[2023-12-18] MEDS ORDERED: Folic Acid 1 MG,Thiamine 200 MG in NS 1,000 ML IV ONE (11:45)
[2023-12-18] MEDS ORDERED: NS 1,000 ML IV ONE (11:45)
[2023-12-18] MEDS ORDERED: Ondansetron 4 MG/2 ML VIAL IV ONE ×2 (12:00→14:15)
[2023-12-18 12:02] LABS: BASO # 0.1 K/mm3 (0.0-0.2); BASO % 0.8 % (0.0-2.0); EOS % 0.1 % (0.0-4.0); GRAN # 7.7 K/mm3 (1.4-6.5); GRAN % 77.9 % (42.2-75.2); HEMATOCRIT 45.9 % (42.0-52.0); HEMOGLOBIN 15.3 g/dl (13.5-18.0); LYMPH # 1.2 K/mm3 (1.2-3.4); LYMPH % 12.2 % (20.0-51.0); MEAN CELL VOLUME 103 fl (80.0-100.0); MEAN CORPUSCULAR HEMOGLOBIN 34 pg (27-31); MEAN CORPUSCULAR HGB CONC 33 g/dl (33.0-37.0); MEAN PLATELET VOLUME 9.5 fl (7.4-10.4); MONO # 0.9 K/mm3 (0.1-0.6); MONO % 8.8 % (1.7-9.3); PLATELET COUNT 333 K/mm3 (130-400); RED BLOOD COUNT 4.47 M/mm3 (4.20-5.60); REDCELL DISTRIBUTION WIDTH-CV 14.3 % (11.5-14.5)
[2023-12-18 12:18] LABS: INR 1.1 (0.8-3.0); PROTHROMBIN TIME 12.2 SECONDS (9.7-12.8)
[2023-12-18 12:31] LABS: ALANINE AMINOTRANSFERASE 22 U/L (0-55); ALBUMIN 2.6 g/dL (3.4-4.8); ALKALINE PHOSPHATASE 207 U/L (40-150); ANION GAP 26 mmol/L (7-16); AST,SGOT 35 U/L (5-34); BILIRUBIN,TOTAL 1.1 mg/dL (0.2-1.2); BLOOD UREA NITROGEN 8 mg/dL (8-26); CALCIUM 8.4 mg/dL (8.4-10.2); CHLORIDE 105 mEq/L (98-107); CREATININE, serum 1.37 mg/dL (0.72-1.25); GLUCOSE 158 mg/dL (70-99); MAGNESIUM 1.2 mg/dL (1.6-2.6); POTASSIUM 3.3 mEq/L (3.5-4.5); SODIUM 142 mEq/L (136-145); TOTAL PROTEIN 6.4 g/dl (6.2-8.1)
[2023-12-18 12:36] LABS: ALCOHOL(ethanol),MEDICAL < 10 mg/dL (0-10)
[2023-12-18] MEDS ORDERED: LORazepam 2 MG/ML 1 ML VIAL IV PRN (14:15)
[2023-12-18] MEDS ORDERED: LR 1,000 ML IV SCH (14:15)
[2023-12-18] MEDS ORDERED: Magnesium Sulfate 8% 50 ML IV ONE (14:15)
[2023-12-18] MEDS ORDERED: *Potassium Replacement Protocol MC SCH (15:00)
--- NOTE | 2023-12-18 15:40 | NUR ---
Pt arrives to ICU 1 from ED at this time. Pt alert and oriented upon arrived; able to move self from stretcher to be with difficulty. Pt being admitted for alcohol w/d. Pt reports drinking about a fifth of whiskey each day. PIV to left AC; saline locked. Pt hypertensive upon arrival 160's/120's; Dr. Buckner aware. No new orders received from anti-hypertensive. Pt has cellphone, special events driver, glasses, slippers, and shoes in his possession; no other belongings present. Fall risk precautions in place. Call light in reach and bed alarm on. Skin assessment: R Great Toe: 1x1cm scab R Ankle: 1x1cm scab L Great Toe: 1x1cm scab R Forearm: 16cm long scratch Pt also has scattered scabbing to BLE. Pt states that he is unaware of how he aquired these wounds; states he sometimes starts drinking and then wakes up with them.
[2023-12-18 15:43] LABS: CREATININE, serum 1.01 mg/dL (0.72-1.25); POTASSIUM 3.9 mEq/L (3.5-4.5)
[2023-12-18] MEDS ORDERED: Multivitamin TAB PO SCH (17:00)
[2023-12-18 17:01] LABS: COLLECTION METHOD CLEAN CATCH
[2023-12-18 17:12] LABS: URINE APPEARANCE TURBID (CLEAR/HAZY); URINE BLOOD 2+ (NEGATIVE); URINE COLOR Dark Yellow (YELLOW); URINE GLUCOSE NEGATIVE (NEGATIVE); URINE KETONE NEGATIVE (NEGATIVE); URINE NITRATE POSITIVE (NEGATIVE); URINE PROTEIN(semi-quant) 2+ (NEGATIVE)
[2023-12-18 17:36] LABS: TRICYCLIC ANTIDEPRESS URINE NEGATIVE (NEGATIVE)
--- NOTE | 2023-12-18 17:37 | NUR ---
THIS RN NOTIFIED DR. MCCORMICK THAT PT'S UA CAME BACK POSITIVE FOR UTI; DR. MCCORMICK STATES HE WILL ORDER URINE CULTURE AND ANTIBIOTIC. THIS RN ALSO NOTIFIED DR. MCCORMICK THAT PT'S BP CONTINUES TO BE ELEVATED AT 155/125. DR. MCCORMICK STATES HE WILL ORDER AMLODIPINE FOR HTN.
[2023-12-18] MEDS ORDERED: amLODIPine 5 MG TAB PO ONE (17:45)
[2023-12-18] MEDS ORDERED: cefTRIAXone 1 G in Water For Injection,Sterile 10 ML IV SCH (18:00)
--- NOTE | 2023-12-18 19:30 | NUR ---
PT RESTING IN BED, ON PHONE. PT IS CALM AND COOPERATIVE AT THIS TIME. PT STATES HE IS GOING TO GO LIVE WITH HIS MOTHER. STATES HIS MOTHER DOESN'T DRINK.
--- NOTE | 2023-12-18 19:38 | NUR ---
CIWA MAX WAS 8. PT HAS BEEN ALERT AND COOPERATIVE. LAST DRINK WAS 2200 ON 12/16. CONTINUE WITH PLAN OF CARE
[2023-12-18] MEDS ORDERED: diazePAM 10 MG TAB PO SCH (21:00)
[2023-12-18] MEDS ORDERED: hydrALAZINE 20 MG/ML 1 ML VIAL IV PRN ×2 (22:00)
[2023-12-19] VITALS (172 sets, daily range): BP systolic 115–161; BP diastolic 82–112; PULSE 84–122; TEMP 97.4–98.9; O2SAT 85–100
--- NOTE | 2023-12-19 05:44 | NUR ---
PT REMAINS CALM AND COOPERATIVE ON ROUNDS. CIWA MAX - 9, MIN -6 OVERNIGHT. PT HYPERTENSIVE. HYDRALAZINE IV GIVEN. PT REMAINS TACHYCARDIC. RESPIRATIONS EVEN AND UNLABORED. NO SIGN OF DISTRESS AT THIS TIME. CONTINUE WITH PLAN OF CARE.
[2023-12-19 06:46] LABS: BASO # 0.1 K/mm3 (0.0-0.2); BASO % 0.7 % (0.0-2.0); EOS # 0.1 K/mm3 (0.0-0.7); EOS % 0.5 % (0.0-4.0); GRAN # 7.9 K/mm3 (1.4-6.5); HEMATOCRIT 41.8 % (42.0-52.0); HEMOGLOBIN 14.7 g/dl (13.5-18.0); LYMPH # 1.5 K/mm3 (1.2-3.4); LYMPH % 14.3 % (20.0-51.0); MEAN CORPUSCULAR HEMOGLOBIN 34 pg (27-31); MEAN CORPUSCULAR HGB CONC 35 g/dl (33.0-37.0); MEAN PLATELET VOLUME 9.8 fl (7.4-10.4); MONO # 1.1 K/mm3 (0.1-0.6); MONO % 10.3 % (1.7-9.3); RED BLOOD COUNT 4.27 M/mm3 (4.20-5.60); REDCELL DISTRIBUTION WIDTH-CV 14.3 % (11.5-14.5)
[2023-12-19 06:50] LABS: MEAN CELL VOLUME 98 fl (80.0-100.0); PLATELET COUNT 227 K/mm3 (130-400)
--- NOTE | 2023-12-19 07:10 | NUR ---
REPORT RECEIVED FROM KESHA MARTINEZ. REPORT PT HAD UNEVENTFUL NIGHT. HIGHEST CIWA SCORE WAS 8. PT WAS APPROPRIATE AND ALERT & ORIENTED THROUGH OUT SHIFT. PT OFFERS NO COMPLAINTS AT THIS TIME. CALL LIGHT IN REACH AND FALL PRECAUTIONS IN PLACE.
[2023-12-19 07:18] LABS: ALBUMIN 2.4 g/dL (3.4-4.8); CALCIUM 8.1 mg/dL (8.4-10.2); CREATININE, serum 0.79 mg/dL (0.72-1.25); PHOSPHOROUS 3.7 mg/dL (2.3-4.7)
[2023-12-19] MEDS ORDERED: *Potassium Replacement Protocol MC SCH (07:30)
--- NOTE | 2023-12-19 08:25 | NUR ---
PT TRANSFERED TO ROOM 354 AT THIS TIME. PT IN POSSESSION OF ALL BELONGINGS AT TIME OF TRANSFER. PT ALERT AND ORIENTED. ASSISTED FROM WHEELCHAIR TO BED. BED ALARM ON AND CALL LIGHT IN REACH. REPORT GIVEN TO JUAN A CABRERA. JUAN A CABRERA AWARE OF PT'S ARRIVAL TO FLOOR.
--- NOTE | 2023-12-19 08:35 | NUR ---
patient came from ICU. patient alert and oriented x3. Patient denies pain at this time. patient denies chest pain, dizziness or headache at this time. Patient experiencing slight tremors and expresses feels tired. Patient has a healing scratch on right forarm. and scab on right ankle. expresses uses a walker when not steady. no fluids running at this time. Left AC iv flushing well. Provided patient with urinal and some water to drink. Patient call ligt within reach. bed at lowest position. bed alarm on.
[2023-12-19] MEDS ORDERED: Thiamine 100 MG TAB PO SCH (09:00)
[2023-12-19] MEDS ORDERED: amLODIPine 10 MG TAB PO SCH (09:00)
[2023-12-19] MEDS ORDERED: Potassium Chloride 100 ML IV SCH (09:00)
[2023-12-19] MEDS ORDERED: Folic Acid 1 MG TAB PO SCH (09:00)
[2023-12-19] MEDS ORDERED: Magnesium Oxide 400 MG TAB PO SCH (10:00)
[2023-12-19] MEDS ORDERED: Lisinopril 10 MG TAB PO SCH (10:00)
[2023-12-19] MEDS ORDERED: Potassium Bicarbonate/Citrate 20 MEQ Effervescent TAB PO SCH (10:00)
--- NOTE | 2023-12-19 10:10 | NUR ---
Business Control Manager attended clinical rounds with the team and Hospitalist is familiar with patient from multiple admissions. Following rounds, SW met with patient to discuss discharge planning. Patient lives alone in [place] and stated Dr. Osullivan is his PCP although he has not seen her in about six months. Patient uses [facility] for prescriptions and stated he has a walker available at home. Patient remarked he doesn't use his walker that often. Patient advised his last drink was about three days ago and he normally drinks half a fifth of whiskey on a normal day. SW inquired about his appointment with [facility] which he scheduled when he was admitted recently. Patient stated he forgot about the appointment and did not go. Patient's next of kin is his daughter, Gena (ph#[phone]). Patient stated he plans to move to [place], [place] to live with his mother, Hannah. 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 Patient stated it's about 9 hours from here and he plans to drive there. Patient stated Hannah is agreeable to him living there. Discharge Plan; Home, planning to move to [place] with family
--- NOTE | 2023-12-19 18:30 | NUR ---
PATIENT REMAINS TIRED THOUGHOUT THE DAY. RESTING IN BED. MILD TREMORS OBSERVED. PATIENT VOIDING RACHELE COLOR URINE. DENIED PAIN. CALL LIGHT WITHIN REACH. BED AT LOWEST POSITION. BED ALARM ON.
--- NOTE | 2023-12-19 20:37 | NUR ---
Shift assessment complete. Patient resting quietly in bed watching TV. Denies any headache, nausea, dizziness. Helped him plug in his phone next to the bed. Call light is within reach. Bed is locked and in low position.
[2023-12-20 01:58] VITALS: BP 124/80; PULSE 88; TEMP 98.5
[2023-12-20 04:00] VITALS: BP 117/80; PULSE 78; TEMP 98.9
[2023-12-20 06:10] VITALS: BP 140/105; PULSE 79; TEMP 98.4
[2023-12-20 06:44] LABS: BASO # 0.1 K/mm3 (0.0-0.2); BASO % 0.6 % (0.0-2.0); EOS # 0.2 K/mm3 (0.0-0.7); EOS % 1.6 % (0.0-4.0); GRAN % 68.1 % (42.2-75.2); HEMATOCRIT 39.9 % (42.0-52.0); HEMOGLOBIN 13.6 g/dl (13.5-18.0); LYMPH # 2.3 K/mm3 (1.2-3.4); LYMPH % 21.9 % (20.0-51.0); MEAN CELL VOLUME 101 fl (80.0-100.0); MEAN CORPUSCULAR HEMOGLOBIN 34 pg (27-31); MEAN CORPUSCULAR HGB CONC 34 g/dl (33.0-37.0); MEAN PLATELET VOLUME 9.9 fl (7.4-10.4); MONO # 0.8 K/mm3 (0.1-0.6); MONO % 7.5 % (1.7-9.3); PLATELET COUNT 194 K/mm3 (130-400); RED BLOOD COUNT 3.97 M/mm3 (4.20-5.60)
[2023-12-20 07:11] LABS: ALBUMIN 2.2 g/dL (3.4-4.8); CALCIUM 8.2 mg/dL (8.4-10.2); CREATININE, serum 0.74 mg/dL (0.72-1.25); MAGNESIUM 1.4 mg/dL (1.6-2.6); PHOSPHOROUS 3.3 mg/dL (2.3-4.7); POTASSIUM 3.9 mEq/L (3.5-4.5)
[2023-12-20 08:12] VITALS: BP 111/77; PULSE 86; TEMP 98.2
[2023-12-20] MEDS ORDERED: Potassium Bicarbonate/Citrate 20 MEQ Effervescent TAB PO ONE (08:30)
[2023-12-20] MEDS ORDERED: THIAMINE 1100 MG/TAB PO (09:22)
[2023-12-20] MEDS ORDERED: FOLIC ACID 11 MG/TA1 PO (09:22)
[2023-12-20] MEDS ORDERED: DUO-KAPS1 CAP PO (09:22)
[2023-12-20] MEDS ORDERED: MAG-OX 400400 MG/TAB PO (09:23)
[2023-12-20] MEDS ORDERED: PRINIVIL10 MG PO (09:24)
[2023-12-20] MEDS ORDERED: CEFTIN500 MG PO (09:26)
[2023-12-20 09:45] VITALS: BP 115/83; PULSE 93; TEMP 98.1
--- NOTE | 2023-12-20 11:05 | NUR ---
PT RESTING IN BED WITH NO PAIN, STEADY GAIT, AND MODERATE TREMORS WTH ARMS EXTENDED. DISCHARGE PROVIDED TO PT. DISCUSSED FOLLOW UP APPOINTMENTS, NO ALCOHOL USE, AND NEW MEDICATIONS. DISCUSSED EACH NEW PRESCRIPTION PURPOSE, DOSAGE, AND FREQUENCY. NO QUESTIONS AT THIS TIME. IV REMOVED. PT AND FAMILY ESCORTED OUT OF BUILDING VIA WHEELCHAIR TO [facility].
--- NOTE | 2023-12-20 13:08 | NUR ---
Claims Service Representative attended clinical rounds with the team and patient is ready for discharge today. SW met with patient who still plans to drive to [place] in the next day or so. SW set up an UBER ride home for patient. Discharge Plan: Home
== END 2023-12-20 11:08 | disposition home or self-care (01) | DRG 896 ==
LOC: COL.ER 11:20 → ICU 13:13 → MEDICAL 12-19 09:02
PROVIDERS: Physician Assistant; ADMIT Internal Medicine
DX: F10.239 Alcohol dependence with withdrawal, unspecified (principal); A41.9 Sepsis, unspecified organism; N39.0 Urinary tract infection, site not specified; E87.20 Acidosis, unspecified; N17.9 Acute kidney failure, unspecified; I10 Essential (primary) hypertension; F17.210 Nicotine dependence, cigarettes, uncomplicated; Y90.0 Blood alcohol level of less than 20 mg/100 ml; K76.0 Fatty (change of) liver, not elsewhere classified; E87.6 Hypokalemia; E83.42 Hypomagnesemia; G40.909 Epilepsy, unspecified, not intractable, without status epilepticus; K57.30 Diverticulosis of large intestine without perforation or abscess without bleeding; Z79.899 Other long term (current) drug therapy
CPT/HCPCS: J0360; J0696; J2060; J2405; J3360; J3411; J3475; J7030; J7120

== ENCOUNTER 2023-12-28 20:09 | Inpatient (IN) | payer SELFPAY ==
[~2023-12-28] VITALS: Ht 188 cm; Wt 72.6 kg
[~2023-12-28 20:09] MED LIST changes: +CEFTIN500 MG PO; +PRINIVIL10 MG PO
[2023-12-28] MEDS ORDERED: NS 1,000 ML IV ONE ×2 (20:30→20:45)
[2023-12-28] MEDS ORDERED: Ondansetron 4 MG/2 ML VIAL IV ONE (20:30)
[2023-12-28 21:03] LABS: BASO # 0.1 K/mm3 (0.0-0.2); BASO % 0.6 % (0.0-2.0); EOS % 0.2 % (0.0-4.0); GRAN # 8.9 K/mm3 (1.4-6.5); GRAN % 80.7 % (42.2-75.2); HEMATOCRIT 45.9 % (42.0-52.0); HEMOGLOBIN 15.9 g/dl (13.5-18.0); LYMPH # 1.1 K/mm3 (1.2-3.4); LYMPH % 10.2 % (20.0-51.0); MEAN CELL VOLUME 99 fl (80.0-100.0); MEAN CORPUSCULAR HEMOGLOBIN 34 pg (27-31); MEAN CORPUSCULAR HGB CONC 35 g/dl (33.0-37.0); MEAN PLATELET VOLUME 9.3 fl (7.4-10.4); MONO # 0.9 K/mm3 (0.1-0.6); PLATELET COUNT 235 K/mm3 (130-400); RED BLOOD COUNT 4.63 M/mm3 (4.20-5.60); REDCELL DISTRIBUTION WIDTH-CV 14.3 % (11.5-14.5)
[2023-12-28 21:19] LABS: ALANINE AMINOTRANSFERASE 20 U/L (0-55); ALBUMIN 2.4 g/dL (3.4-4.8); ALKALINE PHOSPHATASE 207 U/L (40-150); ANION GAP 15 mmol/L (7-16); AST,SGOT 36 U/L (5-34); BILIRUBIN,TOTAL 1.2 mg/dL (0.2-1.2); BLOOD UREA NITROGEN 6 mg/dL (8-26); CALCIUM 8.7 mg/dL (8.4-10.2); CHLORIDE 105 mEq/L (98-107); CREATININE, serum 1.51 mg/dL (0.72-1.25); GLUCOSE 120 mg/dL (70-99); LIPASE 17 U/L (8-78); POTASSIUM 3.9 mEq/L (3.5-4.5); SODIUM 140 mEq/L (136-145); TOTAL PROTEIN 5.9 g/dl (6.2-8.1)
[2023-12-28 21:36] LABS: ALCOHOL(ethanol),MEDICAL < 10 mg/dL (0-10); TROPONIN-I < 0.010 ng/mL (0.00-0.033)
[2023-12-28] MEDS ORDERED: LORazepam 2 MG/ML 1 ML VIAL IV ONE (22:30)
[2023-12-28] MEDS ORDERED: Mag/Al Hydrox/Simeth Susp 30 ML CUP PO PRN (23:15)
[2023-12-28] MEDS ORDERED: LORazepam 2 MG/ML 1 ML VIAL IV PRN (23:15)
[2023-12-28] MEDS ORDERED: Magnesium Sulfate 4% 50 ML IV ONE (23:30)
[2023-12-28] MEDS ORDERED: D5 1/2 NS 1,000 ML IV SCH (23:30)
[2023-12-29] VITALS (13 sets, daily range): BP systolic 104–162; BP diastolic 68–121; PULSE 105–125; TEMP 97.9–99.2
[2023-12-29] MEDS ORDERED: Nystatin Oral Susp 100,000 UNITS/ML 5 ML UD PO SCH (00:17)
--- NOTE | 2023-12-29 00:17 | NUR ---
REPORT RECIEVED FROM CONI VELAZCO AT THIS TIME.
--- NOTE | 2023-12-29 00:34 | NUR ---
MALE PATIENT ARRIVED TO ROOM #313 VIA STRETCHER FROM ER. PATIENT SCOOTED SELF OVER TO BED FROM STRETCHER. INT TO LEFT HAND INTACT WITH NO COMPLICATIONS NOTED. PATIENT ALERT AND ORIENTED. INITAL INTAKE AND ASSESSMENT COMPLETED. PATIENT TOLERATED WELL. MEDICATION ADMINISTRATION ALSO COMPLETED. SEE EMAR. PATIENT GIVEN ICE AND WATER. PATIENT REQUESTED PUDDING AND WAS GIVEN. PATIENT VERBALIZED UNDERSTAND OF CALL LIGHT AND BED CONTROLS. ALL NEEDS MET. BED IN LOW POSITION WITH WHEELS LOCKED WITH RAILS UP X3 AND CALL LIGHT WITHIN REACH. BED ALARM ON.
--- NOTE | 2023-12-29 02:54 | NUR ---
HOSPITALIST CALLED FOR PATIENT BLOOD PRESSURE OF 154/113 WITH HEART RATE OF 117. TELEPHONE ORDER RECIEVED FOR HYDRALAZINE 10 MG IV EVERY 6 HOURS PRN FOR SBP GREATER THAN 170 OR DBP GREATER THAN 100.
[2023-12-29] MEDS ORDERED: hydrALAZINE 20 MG/ML 1 ML VIAL IV PRN (03:00)
[2023-12-29 05:56] LABS: HEMATOCRIT 43.5 % (42.0-52.0); MEAN CELL VOLUME 100 fl (80.0-100.0); MEAN CORPUSCULAR HEMOGLOBIN 34 pg (27-31); MEAN CORPUSCULAR HGB CONC 35 g/dl (33.0-37.0); MEAN PLATELET VOLUME 9.8 fl (7.4-10.4); PLATELET COUNT 216 K/mm3 (130-400); RED BLOOD COUNT 4.36 M/mm3 (4.20-5.60); REDCELL DISTRIBUTION WIDTH-CV 14.1 % (11.5-14.5)
[2023-12-29 06:31] LABS: ALBUMIN 2.3 g/dL (3.4-4.8); BILIRUBIN,TOTAL 1.2 mg/dL (0.2-1.2); CALCIUM 8.3 mg/dL (8.4-10.2); CREATININE, serum 1.03 mg/dL (0.72-1.25); POTASSIUM 3.7 mEq/L (3.5-4.5); TOTAL PROTEIN 5.7 g/dl (6.2-8.1)
[2023-12-29 06:37] LABS: INR 1.1 (0.8-3.0); PROTHROMBIN TIME 11.9 SECONDS (9.7-12.8)
[2023-12-29 06:40] LABS: PARTIAL THROMBOPLASTIN TIME 30.3 SECONDS (26.0-37.0)
--- NOTE | 2023-12-29 07:30 | NUR ---
Patient sitting up in bed, A&O. VSS. IV CDI, fluids infusing. ETOH protocol in place. Denies pain and discomfort. Call light within reach. Bed alarm on
[2023-12-29] MEDS ORDERED: Multivitamin TAB PO SCH (08:00)
[2023-12-29] MEDS ORDERED: Nicotine 14 MG DAILY PATCH TD SCH (09:00)
[2023-12-29] MEDS ORDERED: Folic Acid 1 MG TAB PO SCH (09:00)
--- NOTE | 2023-12-29 11:18 | NUR ---
1000 VS not done, patient sleeping in bed. Call light within reach
--- NOTE | 2023-12-29 15:58 | NUR ---
Toll Collector Supervisor met with patient to complete initial intake. SW is familiar with patient from multiple admissions. Patient lives alone in [place] and lists Dr. Osullivan as his primary care provider, however has not seen her in quite some time due to lack of insurance. Patient gets his medications from [facility] and has a walker available at home if needed. Patient reported independence with ADLS and that he is able to drive. Patient's next of kin is his daughter, Gena (ph#[phone]) who lives in [place], [place]. SW discussed patient's drinking and his plan from the last admission which was to go to [place] to stay with his mom, Hannah. Patient stated he has cut way back on his drinking and does not have the urge to drink at this time. Patient stated his mom got sick so that plan did not work out. Patient stated the plan now is to stay with either his brother or sister in [place]. Patient stated he has the funds for a plane ticket but has nothing scheduled at this time. Patient plans to return home at time of discharge and stated he feels like he is ready to go. Discharge Plan: Home
[2023-12-29] MEDS ORDERED: NYSTATIN OR100 MU/ML PO (18:47)
--- NOTE | 2023-12-29 19:59 | NUR ---
PT ALERT AND ORIENTED. SHIFT ASSESSMENT WITHIN NORMAL LIMITS. PT STATED HE WAS READY TO GO HOME. HE WAS ABLE TO WALK TODAY ON HIS OWN IN [place] PER REPORT FORM DAY NURSE. ORDERS PUT IN AT 1850 TO DISCHARGE. ALL DISCHARGE ORDERS EXPLAINED AND PT WHEELED OUT BY WHEELCHAIR BY HOSPITAL STAFF AT 2004.
== END 2023-12-29 20:05 | disposition home or self-care (01) | DRG 897 ==
LOC: COL.ER 20:09 → MEDICAL 23:53
PROVIDERS: Nurse Practitioner Primary Care; Physician Assistant; ADMIT Internal Medicine
DX: F10.239 Alcohol dependence with withdrawal, unspecified (principal); B37.0 Candidal stomatitis; N17.9 Acute kidney failure, unspecified; G72.1 Alcoholic myopathy; F17.210 Nicotine dependence, cigarettes, uncomplicated; Y90.9 Presence of alcohol in blood, level not specified; R53.81 Other malaise; E86.0 Dehydration; I10 Essential (primary) hypertension; Z79.899 Other long term (current) drug therapy
CPT/HCPCS: J0360; J1650; J2060; J2405; J3475; J7030

== ENCOUNTER 2024-05-04 04:49 | Observation (INO) | payer SELFPAY ==
[~2024-05-04] VITALS: Wt 76.0 kg
[~2024-05-04 04:49] MED LIST changes: +NYSTATIN OR100 MU/ML PO
[2024-05-04] MEDS ORDERED: MULTIVITAMINS IV ONE (05:30)
[2024-05-04] MEDS ORDERED: LORazepam 2 MG/ML 1 ML VIAL IV ONE ×3 (05:30→09:45)
[2024-05-04] MEDS ORDERED: Lisinopril 10 MG TAB PO ONE (05:30)
[2024-05-04] MEDS ORDERED: NS 1,000 ML IV ONE ×2 (05:30→09:00)
[2024-05-04] MEDS ORDERED: NS IV ONE (05:30)
[2024-05-04] MEDS ORDERED: Folic Acid 1 MG,Thiamine 200 MG in NS 1,000 ML IV ONE (05:45)
[2024-05-04 05:46] LABS: BASO # 0.1 K/mm3 (0.0-0.2); BASO % 0.6 % (0.0-2.0); GRAN # 8.1 K/mm3 (1.4-6.5); GRAN % 75.1 % (42.2-75.2); HEMATOCRIT 43.6 % (42.0-52.0); HEMOGLOBIN 15.6 g/dl (13.5-18.0); LYMPH # 1.7 K/mm3 (1.2-3.4); LYMPH % 15.2 % (20.0-51.0); MEAN CELL VOLUME 96 fl (80.0-100.0); MEAN CORPUSCULAR HEMOGLOBIN 34 pg (27-31); MEAN CORPUSCULAR HGB CONC 36 g/dl (33.0-37.0); MEAN PLATELET VOLUME 9.7 fl (7.4-10.4); MONO # 0.9 K/mm3 (0.1-0.6); MONO % 8.7 % (1.7-9.3); PLATELET COUNT 267 K/mm3 (130-400); RED BLOOD COUNT 4.56 M/mm3 (4.20-5.60); REDCELL DISTRIBUTION WIDTH-CV 12.9 % (11.5-14.5)
[2024-05-04 06:47] LABS: ALANINE AMINOTRANSFERASE 16 U/L (0-55); ALBUMIN 3.7 g/dL (3.4-4.8); ALCOHOL(ethanol),MEDICAL < 10 mg/dL (0-10); ALKALINE PHOSPHATASE 138 U/L (40-150); ANION GAP 16 mmol/L (7-16); AST,SGOT 36 U/L (5-34); BILIRUBIN,TOTAL 1.8 mg/dL (0.2-1.2); BLOOD UREA NITROGEN 9 mg/dL (8-26); CHLORIDE 101 mEq/L (98-107); CREATINE KINASE 48 U/L (30-200); CREATININE, serum 1.11 mg/dL (0.72-1.25); GLUCOSE 124 mg/dL (70-99); LIPASE 23 U/L (8-78); POTASSIUM 4.5 mEq/L (3.5-4.5); SODIUM 138 mEq/L (136-145)
[2024-05-04 06:51] LABS: COLLECTION METHOD CLEAN CATCH
[2024-05-04 07:04] LABS: URINE APPEARANCE CLEAR (CLEAR/HAZY); URINE BLOOD NEGATIVE (NEGATIVE); URINE COLOR ORANGE (YELLOW); URINE GLUCOSE NEGATIVE (NEGATIVE); URINE KETONE NEGATIVE (NEGATIVE); URINE NITRATE NEGATIVE (NEGATIVE); URINE PROTEIN(semi-quant) 2+ (NEGATIVE)
[2024-05-04] MEDS ORDERED: cloNIDine 0.1 MG TAB PO ONE (07:15)
[2024-05-04] MEDS ORDERED: Ondansetron 4 MG/2 ML VIAL IV ONE (07:30)
[2024-05-04] MEDS ORDERED: Thiamine 100 MG TAB PO SCH (09:00)
[2024-05-04 09:16] LABS: TROPONIN-I 0.018 ng/mL (0.00-0.033)
[2024-05-04 09:31] LABS: MAGNESIUM 1.4 mg/dL (1.6-2.6)
[2024-05-04] MEDS ORDERED: Folic Acid 1 MG TAB PO SCH (10:20)
[2024-05-04] MEDS ORDERED: LORazepam 2 MG/ML 1 ML VIAL IV PRN (10:30)
[2024-05-04] MEDS ORDERED: Acetaminophen 325 MG TAB PO PRN (10:30)
[2024-05-04] MEDS ORDERED: Magnesium Sulfate 8% 50 ML IV ONE (10:30)
[2024-05-04] MEDS ORDERED: Docusate Sodium 100 MG CAP PO PRN (10:30)
[2024-05-04] MEDS ORDERED: Polyethylene Glycol 3350 17 GM PDS PO PRN (10:30)
[2024-05-04] MEDS ORDERED: LORazepam 1 MG TAB PO PRN (10:30)
[2024-05-04] MEDS ORDERED: Metoprolol Tartrate 5 MG/5 ML VIAL IV PRN (10:30)
[2024-05-04] MEDS ORDERED: Ondansetron 4 MG/2 ML VIAL IV PRN (10:30)
[2024-05-04] MEDS ORDERED: Mag/Al Hydrox/Simeth Susp 30 ML CUP PO PRN (10:30)
[2024-05-04] MEDS ORDERED: NS 1,000 ML IV SCH (10:30)
--- NOTE | 2024-05-04 11:26 | NUR ---
Patient arrived to floor with clothing (pants, shoes, underwear), wallet, cell phone, cell phone analyst competitive intelligence, and glasses. Items have been kept bedside. Using urinal appropriately. Patient is pleasant and cooperative at this time. blood pressure elevated, afebrile, on room air. No immediate complaints other than what patient states "he just drank too much." He explained to me he avioded coming to the ER by EMS by mixing his drinks with Pedilyte to stay hydrated.
[2024-05-04 11:30] VITALS: BP 146/119; PULSE 118; TEMP 98.8
[2024-05-04 11:45] VITALS: BP 146/119; PULSE 118; TEMP 98.8
--- NOTE | 2024-05-04 13:52 | NUR ---
SW met with patient to complete intake/discharge planning. Patient provides he resides in [facility], point of contact is daughter Gena [phone]. Patient provides he is independent with ADLs, does not utilize a walker, nor home health services at this time. PCP is Dr. Dash, and pharmacy is [facility]. Patient provides his plan of discharge is to return to his home. Referral sent provided possible rehab. SW will continue to follow. Discharge plan: TBD
[2024-05-04 13:56] LABS: TRICYCLIC ANTIDEPRESS URINE NEGATIVE (NEGATIVE)
[2024-05-04] MEDS ORDERED: Metoprolol Tartrate 5 MG/5 ML VIAL IV ONE (15:30)
[2024-05-04 16:00] VITALS: BP 160/116; PULSE 85; TEMP 98.5
[2024-05-04 16:33] LABS: PROTHROMBIN TIME 11.3 SECONDS (9.7-12.8)
[2024-05-04 16:35] LABS: PARTIAL THROMBOPLASTIN TIME 27.6 SECONDS (26.0-37.0)
[2024-05-04] MEDS ORDERED: Multivitamin TAB PO SCH (17:00)
--- NOTE | 2024-05-04 18:40 | NUR ---
PATIENT BROUGHT UP FROM ICU VIA WHEELCHAIR. PATIENT UNSTEADY ON HIS FEET. PATIENT AWAKE AND ALERT, SITTING UP IN THE RECLINER, CHAIR ALRM ON AND FALL PRECAUTIONS IN PLACE.
[2024-05-04 19:33] VITALS: BP 129/90; PULSE 106; TEMP 98.2
--- NOTE | 2024-05-04 20:00 | NUR ---
Assessment complete. A&Ox3. Denies nausea/shortness of breath. Rating pain 3/10 on pain scale-desribed as constant ache-tylenol given per dr order. VS stable. On RA. TELE reporting SR. Currently scoring 1-3 on CIWA protocol. INT to left hand/right FA flushes without difficulty. NS@75ml/hr infusing without difficulty. Plan of care discussed for this shift to include meds/pain control/CIWA/calling for questions/concerns. Verbalizes understanding. Call light in reach. Will monitor.
[2024-05-04 21:50] VITALS: BP 147/95; PULSE 85; TEMP 98.2
[2024-05-04 23:35] VITALS: BP 159/105; PULSE 76; TEMP 98.3
[2024-05-05] VITALS (7 sets, daily range): BP systolic 129–202; BP diastolic 84–135; PULSE 67–78; TEMP 98.2–98.5
--- NOTE | 2024-05-05 | NUR ---
Patient with elevated blood pressures. PRN Lopressor given IV per dr order. Will monitor.
--- NOTE | 2024-05-05 02:47 | NUR ---
Patient resting in bed eyes closed. NO s/s of pain or discomfort noted. IV with NS@75mls/hr infusing without difficulty. Call light in reach/bed alarm on. Will monitor.
--- NOTE | 2024-05-05 04:00 | NUR ---
Patient with elevated blood pressure. PRN Lopressor given per dr order. Will monitor.
--- NOTE | 2024-05-05 06:44 | NUR ---
Bedside report given to JUAN A Key.
[2024-05-05 07:46] LABS: BASO # 0.1 K/mm3 (0.0-0.2); BASO % 0.6 % (0.0-2.0); EOS # 0.1 K/mm3 (0.0-0.7); EOS % 0.9 % (0.0-4.0); GRAN # 5.7 K/mm3 (1.4-6.5); GRAN % 62.9 % (42.2-75.2); LYMPH # 2.5 K/mm3 (1.2-3.4); LYMPH % 28.2 % (20.0-51.0); MEAN CELL VOLUME 98 fl (80.0-100.0); MEAN CORPUSCULAR HEMOGLOBIN 34 pg (27-31); MEAN CORPUSCULAR HGB CONC 35 g/dl (33.0-37.0); MEAN PLATELET VOLUME 9.5 fl (7.4-10.4); MONO # 0.6 K/mm3 (0.1-0.6); MONO % 7.1 % (1.7-9.3); PLATELET COUNT 205 K/mm3 (130-400); RED BLOOD COUNT 3.98 M/mm3 (4.20-5.60); REDCELL DISTRIBUTION WIDTH-CV 12.6 % (11.5-14.5)
[2024-05-05 07:51] LABS: HEMOGLOBIN 13.5 g/dl (13.5-18.0)
[2024-05-05 08:15] LABS: ALBUMIN 3.2 g/dL (3.4-4.8); BILIRUBIN,TOTAL 1.5 mg/dL (0.2-1.2); CALCIUM 8.7 mg/dL (8.4-10.2); CREATININE, serum 0.8 mg/dL (0.72-1.25); MAGNESIUM 1.8 mg/dL (1.6-2.6); POTASSIUM 3.6 mEq/L (3.5-4.5); TOTAL PROTEIN 6.5 g/dl (6.2-8.1)
--- NOTE | 2024-05-05 09:43 | NUR ---
PT RESTING IN BED, AELRT AND ORIENTED X4. ASSESSED PT. CIWA SCORE IS 1- SLIGHT TREMOR FELT IN ARMS. IV FLUIDS RUNNING AT 75. GAVE MORNING MEDS. NO OTHER COMPLAINTS AT THIS TIME. CALL LIGHT WITHIN REACH.
[2024-05-05] MEDS ORDERED: FOLIC ACID 11 MG/TA1 PO (11:10)
[2024-05-05] MEDS ORDERED: NATURE'S BLEND100 M2 PO (11:12)
[2024-05-05] MEDS ORDERED: DUO-KAPS1 CAP PO (11:13)
--- NOTE | 2024-05-05 11:18 | NUR ---
PCT TOOK PT BP WITH MACHINE AND IT READ 202/135. THIS NURSE TOOK A MANUAL BP AND IT WAS 158/102.
--- NOTE | 2024-05-05 12:35 | NUR ---
PT HAS DISCHARGE ORDERS. WENT OVER DISCHARGE PAPERWORK WITH PT AND TOOK OU TPT IV. PT STATED HE WAS GETTING AN UBER AND THEN PROCEDED TO SAY THAT HE WAS ONLY ABLE TO PAY IN [place] AND UBER DID NOT TAKE [place]. RESEARCH EPIDEMIOLOGIST CALLED DAUGHTER AND SHE IS GOING TO ORDER HIM AN UBER. WAITING ON UBER TO PICK PT UP.
--- NOTE | 2024-05-05 13:27 | NUR ---
PT ESCORTED OUT BY PCT TO [facility]
--- NOTE | 2024-05-05 15:48 | NUR ---
REHAB SERVICES AIDE was notified from RN that pt is medically stable to discharge and wants to go home. Pt stated he has miller but does not have any money on his debit card. REHAB SERVICES AIDE contacted Eleanor to discuss what the protocol is. She informed me to call house supervisior. REHAB SERVICES AIDE contacted house supervisior Nel who stated that Dianna Franks has paid for an Uber multiple times and would like pt to exhausted all resources prior to us paying for an Uber. REHAB SERVICES AIDE contacted daughter Gena who was agreeable to paying for Uber. Gena now lives in [place]. Her phone number is incorrect in the chart and the number Nel gave me is correct [phone]. Gena stated that pt also has a son but he does not have any contact with the pt. Gena sucessfully orderd pt an Uber and he discharged home.
== END 2024-05-05 12:50 | disposition home or self-care (01) ==
LOC: COL.ER 04:49 → ICU 10:13 → MEDICAL 18:59
PROVIDERS: Emergency Medicine; Family Medicine; ADMIT Hospitalist
DX: F10.131 Alcohol abuse with withdrawal delirium (principal); K70.0 Alcoholic fatty liver; I16.0 Hypertensive urgency; I10 Essential (primary) hypertension; R00.0 Tachycardia, unspecified; E83.42 Hypomagnesemia; Y90.9 Presence of alcohol in blood, level not specified; R56.9 Unspecified convulsions
CPT/HCPCS: G0378; J2060; J2405; J3411; J3475; J7030